=== PATIENT | male | born 1940 | race Caucasian/White ===

== ENCOUNTER 2018-06-18 11:39 | Inpatient (IN) | payer MEDICARE, OTHER ==
[~2018-06-18] VITALS: Ht 172.7 cm; Wt 83.0 kg
[2018-06-18] MEDS ORDERED: NORVASC 10MG10 MG PO (13:27)
[2018-06-18] MEDS ORDERED: ASPIRIN 81M81 MG/TA2 PO (13:28)
[2018-06-18] MEDS ORDERED: PLAVIX 75MG TAB75 MG PO (13:29)
[2018-06-18] MEDS ORDERED: PRINIVIL5 MG PO (13:30)
[2018-06-18] MEDS ORDERED: MIRALAX PA17 GM/Dose PO (13:31)
[2018-06-18] MEDS ORDERED: SENNA8.8 MG/5 M PO (13:32)
[2018-06-18] MEDS ORDERED: LIPITOR 80MG80 MG PO (13:33)
[2018-06-18] MEDS ORDERED: ZANTAC 150MG T150 MG PO (13:33)
[2018-06-18] MEDS ORDERED: RT ADVAIR 228 DISKUS IH (13:36)
[2018-06-18] MEDS ORDERED: KEPPRA250 MG PO (13:39)
[2018-06-18] MEDS ORDERED: KEPPRA 500MG500 MG PO (13:40)
[2018-06-18] MEDS ORDERED: RT SPIRIVA18 MCG IH (13:41)
[2018-06-18] MEDS ORDERED: NOVOLOG 100U100 U/M1 SQ (14:08)
[2018-06-18 14:30] VITALS: BP 125/48; PULSE 102; TEMP 97.7
[2018-06-18 16:37] LABS: ALBUMIN 2.9 gm/dL (3.5-5.0); BILIRUBIN,TOTAL 0.6 mg/dL (0.0-1.0); CALCIUM 8.6 mg/dL (8.4-10.2); CREATININE, serum 1.66 (0.66-1.25); MAGNESIUM 2.4 mg/dL (1.6-2.3); PHOSPHOROUS 3.2 mg/dL (2.5-4.5); POTASSIUM 4.3 mmol/L (3.4-5.0)
[2018-06-18 16:44] LABS: PRE ALBUMIN 17.6 mg/dL (17.6-36.0)
[2018-06-18 18:00] VITALS: BP 125/48; PULSE 102
--- NOTE | 2018-06-18 19:30 | NUR ---
Report received from Aicha VAZQUEZ. Patient rests soundly with eyes closed. Admission assessment done with .
--- NOTE | 2018-06-18 21:06 | NUR ---
Patient was a one person CGA with walking to the bathroom. It took some time to find syringe for peg tube feeding, but patient is now on continuous tube feedings. See orders in chart. Patient denies pain. Patient does have small seizures and staff has applied seizure pads to bed and patient takes Keppra. was with today and did answer questions for the 5 page report. Patient wears his own underwear and was continent this shift. Peg tube site cleaned and found serrato drainage to the area applied fresh drain gauze to the area. Patient tolerated well. will continue to monitor.
--- NOTE | 2018-06-18 21:30 | NUR ---
Patient up CGA with gaitbelt and voids and has medium soft brown bm. Wipes self. Inner buttucks with light redness and barrier cream applied. Patient rests self back in bed. Denies pain.
--- NOTE | 2018-06-18 22:30 | NUR ---
Peg tube residual minimal less than 5mls serrato tubefeeding. Flushed with 30mls prior to and after meds given.
--- NOTE | 2018-06-18 23:00 | NUR ---
Patient rests with eyes closed. Respirations with ease,
[2018-06-19] VITALS (12 sets, daily range): BP systolic 76–130; BP diastolic 40–49; PULSE 98–120; TEMP 97.7–98.3
--- NOTE | 2018-06-19 00:21 | NUR ---
Patient resting in bed until now. Up to the bathroom min 1 assist and has small incontinency of loose stool. Pullup applied. Rests back in bed. Patient used call light for toileting. Aphasic.
--- NOTE | 2018-06-19 02:00 | NUR ---
Patient rests with eyes closed. Respirations with ease.
--- NOTE | 2018-06-19 04:41 | NUR ---
Patient awake at this time and mouth swab moistened slightly and swabs mouth. Denies further needs.
--- NOTE | 2018-06-19 05:44 | NUR ---
PATIENT RESTS QUIETLY IN BED. RESPIRATIONS WITH EASE.
--- NOTE | 2018-06-19 08:02 | NUR ---
Report from TAYLOR Cota. FOILING MACHINE ADJUSTER assisted pt for toileting.
--- NOTE | 2018-06-19 09:12 | NUR ---
Handed pt moist swab for oral cares, warm washcloth, and upper dentures. Pt attempts to communicate, but difficulty understanding his slurred speech, he tries several words at a time. Informed pt of PEG cares, TF, and meds crushed via PEG, buttons intact with drain sponge in place with scant drainage. Denies pain, nausea, shortness of breath. Yellow gripper socks, yellow arm band, and bed alarm in place. Call light in reach. Pt donned glasses.
--- NOTE | 2018-06-19 11:03 | NUR ---
Paused TF while pt works with OT. Denies pain.
--- NOTE | 2018-06-19 11:25 | NUR ---
OT reports pt short of air after toileting with loose stool. Pt was sitting on shower bench in BR, see vitals. After resting, SpO2 came up. OT took BP, low, returned pt to bed for sponge bath. Will continue to monitor.
[2018-06-19 12:44] LABS: MEAN CELL VOLUME 94 fl (80.0-100.0); MEAN CORPUSCULAR HGB CONC 33 g/dl (33.0-37.0); MEAN PLATELET VOLUME 10.3 fl (7.4-10.4); PLATELET COUNT 298 K/mm3 (130-400); RED BLOOD COUNT 2.91 M/mm3 (4.20-5.60); REDCELL DISTRIBUTION WIDTH-CV 13.8 % (11.5-14.5)
[2018-06-19 12:45] LABS: HEMATOCRIT 27.4 % (42.0-52.0); MEAN CORPUSCULAR HEMOGLOBIN 31 pg (27.0-31.0)
[2018-06-19 12:55] LABS: CALCIUM 9.2 mg/dL (8.4-10.2); CREATININE, serum 2.46 (0.66-1.25); MAGNESIUM 2.7 mg/dL (1.6-2.3); POTASSIUM 3.8 mmol/L (3.4-5.0)
[2018-06-19 13:09] LABS: BAND 3 % (0-10); EOSINOPHIL 1 % (0-4); LYMPHOCYTE 16 % (20.0-51.0); METAMYELOCYTE 1 % (0-0); MYELOCYTE 1 % (0-0); NEUTROPHILS 73 % (42.0-75.2)
--- NOTE | 2018-06-19 13:15 | NUR ---
Dr. Christopher made aware of pt's loose dark green/black stools, "coffee ground" residual from PEG, and episode of hypotension with OT.
--- NOTE | 2018-06-19 13:16 | NUR ---
Contacted Dr. Christopher for critical WBC. See new orders. Dolores visiting, updated her and pt about orders. Disconnected TF for therapy. See vitals.
--- NOTE | 2018-06-19 15:07 | NUR ---
TF resumed, pt declined offer to toilet. visiting. Copies of DPOA to chart. Enc oral swab use, assists with ice chips.
--- NOTE | 2018-06-19 15:24 | NUR ---
REBECCA mcadams met with patient and patient's (Cheryl) to complete intake. Patient lives with his in [place]. Patient's PCP is Dr. Sanders at [facility] and he also receives his medications on [facility]. Patient has a cane and walker available to him at home and was independent with ADLs prior to stroke and hospitalization. Patient's DPOA-HC is in his chart and he has designated his . REBECCA mcadams informed patient and patient's about the weekly team conferences and notes following the meeting. REBECCA to continue to follow.
--- NOTE | 2018-06-19 20:00 | NUR ---
Patients accu check 426 and message left with . Patient given 14 units novolog insulin along with scheduled levimier. HS meds all reviewed and given. Felicitas VAZQUEZ started IV bolus and IV ABT. Patient rests quietly in bed. Respirations slightly labored but denies shortness of breath or pain. Alert to self, in hospital month, unable to state year and states it's morning time. Reoriented. Understands and follows directions without problems.
--- NOTE | 2018-06-19 20:38 | NUR ---
Stool positive for occult blood, see new orders. Started IV and fluids and abx. Pt unable to void prior to shift change, bladder scanned with results 100-300's. Report to TAYLOR Cota. Pt in bed with alarm on, call lt in reach, fresh ice chips given.
--- NOTE | 2018-06-19 22:00 | NUR ---
Accu check now 288. Adams cath 16 greek procedure reviewed with patient due to urine retention and IVF administration. Althea care done and adams catheter inserted via sterile procedure without problem. Immediate return of clear yellow urine. Patient calm during procedure and tolerated well. Total return of 500mls urine initially. Cath UA sent to lab.
[2018-06-19 22:44] LABS: PH 5 (5-8); SQUAMOUS EPITHELIAL None Seen /hpf; URINE APPEARANCE Clear; URINE BACTERIA None Seen /hpf; URINE BILIRUBIN Negative (NEGATIVE); URINE BLOOD Negative (NEGATIVE); URINE COLOR Yellow; URINE GLUCOSE 1+ (NEGATIVE); URINE KETONE Negative (NEGATIVE); URINE LEUKOCYTE ESTERASE Negative (NEGATIVE); URINE NITRATE Negative (NEGATIVE); URINE PROTEIN(semi-quant) Negative (NEGATIVE); URINE RBC 0-2 /hpf; URINE UROBILINOGEN Negative (NEGATIVE)
[2018-06-19 23:25] LABS: COLLECTION METHOD CATHETER
--- NOTE | 2018-06-19 23:30 | NUR ---
New orders were received per Dr. Christopher to do accu checks and SSI q 4 hours at this time. Accu check 240 and 6 units novolog reviewed and given. Patient initially resting with eyes closed.
[2018-06-20] VITALS (8 sets, daily range): BP systolic 101–158; BP diastolic 28–51; PULSE 97–122; TEMP 98.8–99.4
--- NOTE | 2018-06-20 05:06 | NUR ---
Patient awakened for SSI 8 units SQ. Denies pain or needs. Ice chips given.
[2018-06-20 07:25] LABS: BASO % 0.2 % (0.0-2.0); EOS # 0.2 (0.0-0.7); EOS % 1.3 % (0-4.0); GRAN # 11.2 (1.4-6.5); GRAN % 73.9 % (42.2-75.2); HEMATOCRIT 23.2 % (42.0-52.0); HEMOGLOBIN 7.3 g/dl (13.5-18.0); LYMPH # 2.2 (1.2-3.4); LYMPH % 14.2 % (20.0-51.0); MEAN CELL VOLUME 97 fl (80.0-100.0); MEAN CORPUSCULAR HEMOGLOBIN 31 pg (27.0-31.0); MEAN CORPUSCULAR HGB CONC 32 g/dl (33.0-37.0); MEAN PLATELET VOLUME 10.5 fl (7.4-10.4); MONO # 1.4 (0.1-0.6); MONO % 9.5 % (1.7-9.3); PLATELET COUNT 233 K/mm3 (130-400); RED BLOOD COUNT 2.39 M/mm3 (4.20-5.60); REDCELL DISTRIBUTION WIDTH-CV 14.3 % (11.5-14.5)
[2018-06-20 07:28] LABS: CALCIUM 8.5 mg/dL (8.4-10.2); CREATININE, serum 2.28 (0.66-1.25); MAGNESIUM 2.5 mg/dL (1.6-2.3); POTASSIUM 3.9 mmol/L (3.4-5.0)
--- NOTE | 2018-06-20 08:08 | NUR ---
Report from TAYLOR Cota. TF had run out, requested more from kitchen. Pt to start PT soon, has SCDs off, yellow gripper socks on. IVF paused for therapies.
--- NOTE | 2018-06-20 09:32 | NUR ---
Per pt's request, called to update of pt's POC and expected transfer to medical unit. She states she will try to arrive around 1230
--- NOTE | 2018-06-20 09:43 | NUR ---
Resumed IVF and TF
--- NOTE | 2018-06-20 09:43 | NUR ---
Changed drain sponge to PEG of scant bloody drainage. Three buttons intact.
--- NOTE | 2018-06-20 10:23 | NUR ---
Pt pushed call light, unable to understand his words, provided oral swab. He points to "family" image on communication paper. See vitals. Pt eventually able to communicate he wanted ice chips.
--- NOTE | 2018-06-20 11:26 | NUR ---
Initial visit; Substitute Bus Driver introduced herself to patient, letting him know of the availability of Spiritual Care. Patient declined prayer at this time.
--- NOTE | 2018-06-20 14:34 | NUR ---
Pt's questions pt's keppra dose, pt acknowledges that he had stopped taking the extra 250 mg at night, so he was just on 500 mg BID
--- NOTE | 2018-06-20 15:00 | NUR ---
Tube feed stopped at 1400. Flushed with 124 ml water.
--- NOTE | 2018-06-20 15:13 | NUR ---
REBECCA student presented and explained IPR team conference notes to patient and patient's . Patient is to transfer to medical floor later today. SW to continue to follow.
--- NOTE | 2018-06-20 16:33 | NUR ---
Cleaned PEG tube with water and toothbrush after meds administered.
--- NOTE | 2018-06-20 20:57 | NUR ---
Discharged from [facility] in order to admit to surgical at 1700 d/t GI bleed. See new acct.
== END 2018-06-20 17:39 | DRG 57 ==
LOC: SURG 06-20 16:35
PROVIDERS: ADMIT Internal Medicine
DX: I69.351 Hemiplegia and hemiparesis following cerebral infarction affecting right dominant side (principal); N17.9 Acute kidney failure, unspecified; K92.1 Melena; I69.320 Aphasia following cerebral infarction; I69.322 Dysarthria following cerebral infarction; I69.392 Facial weakness following cerebral infarction; N40.0 Benign prostatic hyperplasia without lower urinary tract symptoms; I12.9 Hypertensive chronic kidney disease with stage 1 through stage 4 chronic kidney disease, or unspecified chronic kidney disease; N18.9 Chronic kidney disease, unspecified; E11.22 Type 2 diabetes mellitus with diabetic chronic kidney disease; J44.9 Chronic obstructive pulmonary disease, unspecified; Z87.891 Personal history of nicotine dependence; I95.9 Hypotension, unspecified; R13.10 Dysphagia, unspecified; E78.5 Hyperlipidemia, unspecified; G40.909 Epilepsy, unspecified, not intractable, without status epilepticus
CPT/HCPCS: 99223-AI; 99239; A4216; C9113; J0696; J1815; J7030

== ENCOUNTER 2018-06-20 16:35 | Inpatient (IN) | payer MEDICARE, OTHER ==
[~2018-06-20] VITALS: Ht 172.7 cm; Wt 86.9 kg
[~2018-06-20 16:35] MED LIST: ASPIRIN 81M81 MG/TA2 PO; KEPPRA 500MG500 MG PO; KEPPRA250 MG PO; LIPITOR 80MG80 MG PO; MIRALAX PA17 GM/Dose PO; NORVASC 10MG10 MG PO; NOVOLOG 100U100 U/M1 SQ; PLAVIX 75MG TAB75 MG PO; PRINIVIL5 MG PO; RT ADVAIR 228 DISKUS IH; RT SPIRIVA18 MCG IH; SENNA8.8 MG/5 M PO; ZANTAC 150MG T150 MG PO
[2018-06-20 17:58] VITALS: BP 124/44; PULSE 128; TEMP 97.5
[2018-06-20 19:22] LABS: HEMATOCRIT 20.5 % (42.0-52.0); HEMOGLOBIN 6.6 g/dl (13.5-18.0)
[2018-06-20 19:30] VITALS: BP 123/40; PULSE 121; TEMP 97.8
--- NOTE | 2018-06-20 19:30 | NUR ---
Message left with Dr. Christopher patients hgb 6.6 Hct 20.5, patients repirations are Kussmaul 28-30 breaths per minute,labored. Patient does report some shortness of breath. sao2 94-97% room air. BP 127/42. Left message that patients heart rate 119-125. Script Girl Blanca notified of above. See assessment. Patient dozes off and on. Awakens readily to voice and alert. At 2100 new orders received by Dr. Christopher for type and screen and administer 1 Unit PRBCs. Accu check [address] Christopher notified and orders received to hold levemier, lipitor and miralax tonight. Patient informed of order for 1 unit PRBC's and signs and symptoms of blood transfusion reaction ie: shortness of breath, fever, chills, itching, rash, chest pain, bleeding, dizziness, nausea, back or flank pain and hives. Patients Dolores notified of new order for 1 unit PRBCs and purpose and Dolores gives verbal consent for administration of PRBCs to patient and verified by 2 RN's. See consent form.
[2018-06-20 19:42] VITALS: BP 124/44; PULSE 128; TEMP 97.5
--- NOTE | 2018-06-20 20:12 | NUR ---
Pt discharged from IPR and admitted to [facility] via bed, slide board transfer, IVF and rocephin given on IPR prior to changing rooms. Dolores at bedside, updated on POC. Pt's resps are 28 and even, snores when sleeping. PEG feeds stopped at 1400. SCDs to BLE, yellow gripper socks in place, call light in reach, alarm on bed. Report to TAYLOR Cota.
[2018-06-20 23:00] VITALS: BP 124/41; PULSE 117; TEMP 99.2
[2018-06-20 23:16] VITALS: BP 116/67; PULSE 117; TEMP 99.2
[2018-06-20 23:40] VITALS: BP 126/43; PULSE 119; TEMP 98
--- NOTE | 2018-06-20 23:40 | NUR ---
PRBC's infusion rate increased from 60 to 120ml/hr. Patient restless arm movements at times and takes off 02 monitor. Denies pain.
[2018-06-21] VITALS (18 sets, daily range): BP systolic 104–140; BP diastolic 40–95; PULSE 81–118; TEMP 97.4–98.5
--- NOTE | 2018-06-21 00:20 | NUR ---
Patient rests with eyes closed. Kussamaul respirations 32 breaths per minute. Afebrile. Blanca VAZQUEZdistribution center supervisor into see patient.
--- NOTE | 2018-06-21 02:35 | NUR ---
1 unit PRBC transfusion complete without signs or symptoms of transfusion reaction. Patients respirations less labored at times 28 breaths per minute. Heart rate decreased to 109-112.
--- NOTE | 2018-06-21 03:00 | NUR ---
Patient incontinent of small loose dk brown stool in pullup and changed. Assists staff with turning side to side. Denies pain. Barrier cream applied to lightly reddened inner buttucks. No skin tear/or opening noted. Patient changed from clothing into gown. HR 106-109. Respirations less labored 28.
--- NOTE | 2018-06-21 04:04 | NUR ---
Patient rests with eyes closed. Repositions self in bed.
--- NOTE | 2018-06-21 05:30 | NUR ---
Patient rests quietly in bed. Respirations less labored at 28 breaths per minute. HR in 90's. Lab was in and sd blood. Hopper with good urine output clear yellow urine.
[2018-06-21 06:59] LABS: MEAN CELL VOLUME 96 fl (80.0-100.0); MEAN CORPUSCULAR HGB CONC 32 g/dl (33.0-37.0); MEAN PLATELET VOLUME 10.6 fl (7.4-10.4); PLATELET COUNT 230 K/mm3 (130-400); RED BLOOD COUNT 2.71 M/mm3 (4.20-5.60); REDCELL DISTRIBUTION WIDTH-CV 14.7 % (11.5-14.5)
[2018-06-21 07:04] LABS: CALCIUM 8.5 mg/dL (8.4-10.2); CREATININE, serum 2.26 (0.66-1.25); MAGNESIUM 2.4 mg/dL (1.6-2.3); POTASSIUM 3.6 mmol/L (3.4-5.0)
[2018-06-21 07:08] LABS: HEMATOCRIT 25.9 % (42.0-52.0); HEMOGLOBIN 8.4 g/dl (13.5-18.0); MEAN CORPUSCULAR HEMOGLOBIN 31 pg (27.0-31.0)
[2018-06-21 07:20] LABS: INR 1.1 (0.8-3.0); PROTHROMBIN TIME 12.1 SECONDS (9.7-12.8)
[2018-06-21 07:32] LABS: BAND 1 % (0-10); BASOPHIL 1 % (0-2); LYMPHOCYTE 13 % (20.0-51.0); NEUTROPHILS 77 % (42.0-75.2); PLATELET ESTIMATE NORMAL (NORMAL)
[2018-06-21 07:33] LABS: DOHLE BODIES PRESENT
--- NOTE | 2018-06-21 07:35 | NUR ---
CRITICAL WBC RESULT OF 23.1 CALLED TO LUX SIMMONS. NO ORDERS GIVEN AT THIS TIME.
--- NOTE | 2018-06-21 07:46 | NUR ---
CALLED AND NOTIFIED OF GI BLEED CONSULT. ORDERS GIVEN TO SCHEDULE EGD AT 1330 TODAY WITH ANESTHESIA. KEEP PATIENT NPO.
--- NOTE | 2018-06-21 07:56 | NUR ---
EGD SCHEDULED WITH ENDOSCOPY AT 1330 TODAY. ANESTHESIA NOTIFIED OF CONSULT FOR PROCEDURE.
--- NOTE | 2018-06-21 08:00 | NUR ---
PATIENT IS APHASIC. WHEN PATIENT'S FIRST AND LAST NAME AND BIRTHDATE ARE READ TO THE PATIENT, HE NODS IN AGREEANCE. PATIENT STATES THE MONTH IS JUNE, SPEECH GARBLED. WHEN PATIENT IS ASKED IF HE KNOWS WHERE HE IS, HE SHAKES HIS HEAD NO. PATIENT RE-ORIENTED TO PLACE. SEE PATIENT MORNING ASSESSMENT. PATIENT IS DROWSY, BUT AROUSES EASILY TO NAME. TACHYPNEA AND TACHYCARDIA NOTED, OTHERWISE VSS. LUNGS CLEAR UPON AUSCULTATION. AUDITORY EXPIRATORY WHEEZES NOTED. PATIENT DENIES SOB. PEG TUBE TO ABDOMEN AND CLAMPED. VILLALBA CATHETER TO DEPENDENT DRAINAGE WITH MODERATE AMOUNTS OF CLEAR YELLOW URINE PRESENT. IV FLUIDS INFUSING TO LEFT FOREARM VIA IV PUMP. CALL LIGHT WITHIN REACH. BED ALARM ON. SEIZURE PADS IN PLACE. PATIENT DENIES PAIN THIS MORNING. NO NEEDS AT THIS TIME.
--- NOTE | 2018-06-21 08:25 | NUR ---
DOUBLE NURSE PHONE CONSENT OBTAINED BY THIS NURSE AND TAYLOR GOETZ FOR EGD WITH POSSIBLE BIOPSIES WITH THIS AFTERNOON FROM PATIENT'S [facility]. CONSENT FORM ON PATIENT CHART.
[2018-06-21 11:36] LABS: COLLECTION METHOD CATHETER
[2018-06-21 12:03] LABS: MUCOUS Present /lpf; PH 5 (5-8); SQUAMOUS EPITHELIAL None Seen /hpf; URINE APPEARANCE Hazy; URINE BACTERIA None Seen /hpf; URINE BILIRUBIN Negative (NEGATIVE); URINE BLOOD 2+ (NEGATIVE); URINE COLOR Yellow; URINE GLUCOSE Negative (NEGATIVE); URINE KETONE Negative (NEGATIVE); URINE LEUKOCYTE ESTERASE Negative (NEGATIVE); URINE NITRATE Negative (NEGATIVE); URINE PROTEIN(semi-quant) Negative (NEGATIVE); URINE UROBILINOGEN Negative (NEGATIVE)
--- NOTE | 2018-06-21 12:20 | NUR ---
First visit from the preschool assistant director. No needs right now.
--- NOTE | 2018-06-21 13:08 | NUR ---
PATIENT TAKEN TO [facility] VIA BED FOR EGD. WILL WAIT FOR PATIENT ARRIVAL BACK TO ROOM 344.
--- NOTE | 2018-06-21 13:54 | NUR ---
PT IN BED WITH EYES CLOSED. AWAKENS EASILY. PT SHAKES HEAD YES OR NO WHEN QUESTIONS ARE ASKED. LIMITED VERBAL RESPONSE. RESP RATE EVEN AND UNLABORED. SKIN WARM AND DRY. PT SHAKES HEAD NO WHEN ASKED IF HE IS HAVING PAIN. VILLALBA CATHETER DRAINING CLEAR PALE YELLOW URINE. PRIMARY NURSE MIGUE.
--- NOTE | 2018-06-21 14:35 | NUR ---
PATIENT ARRIVED BACK TO ROOM 344 VIA BED FROM EGD AND CT SCAN. PATIENT IS DROWSY BUT AROUSES EASILY TO NAME. POST-OP VITALS STABLE. WILL CONTINUE TO MONITOR.
[2018-06-21 16:46] LABS: CALCIUM 8.2 mg/dL (8.4-10.2); CREATININE, serum 2.07 (0.66-1.25); POTASSIUM 3.6 mmol/L (3.4-5.0)
--- NOTE | 2018-06-21 17:20 | NUR ---
POST-OP VITALS COMPLETE. PATIENT TOLERATING ICE CHIPS WITHOUT ANY N/V. WILL CONTINUE TO MONITOR.
[2018-06-21 18:17] LABS: HEMATOCRIT 23.4 % (42.0-52.0); HEMOGLOBIN 7.7 g/dl (13.5-18.0)
--- NOTE | 2018-06-21 19:02 | NUR ---
Patient had no complaints. present during the day. Call light within reach. Reported off to primary nurse Katina.
--- NOTE | 2018-06-21 19:09 | NUR ---
REPORT GIVEN TO TAYLOR TIMMONS.
--- NOTE | 2018-06-21 23:08 | NUR ---
Patient resting in bed during assessment. Noted to be hard of hearing and aphasic. Staff has difficulty in understanding needs. Some frustration from patient noted. PICC to YANA noted. PEG tube noted to left upper quadrant. Flushes easily. Medications administered through PEG. Patient frequently requests ice chips for dry mouth. Noted to have urinary catheter draining yellow urine. Denies pain. Patient resting in bed with eyes closed at this time. Noted to have some tachypnea, but doesn't appear to be in distress. Oxygen saturation within normal limits. Will monitor this closely.
[2018-06-22 01:11] VITALS: BP 150/47; PULSE 100; TEMP 97.3
--- NOTE | 2018-06-22 03:39 | NUR ---
Patient requests and received ice chips. Denies further needs. Noted to sneeze and cough a couple times throughout the shift. Noted to sleep on and off throughout the night. Shakes head no when asked if he has pain.
[2018-06-22 06:55] LABS: BASO % 0.2 % (0.0-2.0); EOS # 0.3 (0.0-0.7); EOS % 1.3 % (0-4.0); GRAN # 16.9 (1.4-6.5); GRAN % 81.8 % (42.2-75.2); INR 1.2 (0.8-3.0); LYMPH % 9.8 % (20.0-51.0); MEAN CELL VOLUME 96 fl (80.0-100.0); MEAN CORPUSCULAR HGB CONC 32 g/dl (33.0-37.0); MEAN PLATELET VOLUME 10.5 fl (7.4-10.4); MONO # 1.2 (0.1-0.6); PLATELET COUNT 211 K/mm3 (130-400); PROTHROMBIN TIME 13.5 SECONDS (9.7-12.8); REDCELL DISTRIBUTION WIDTH-CV 15.3 % (11.5-14.5)
[2018-06-22 07:02] LABS: HEMOGLOBIN 7.4 g/dl (13.5-18.0); MEAN CORPUSCULAR HEMOGLOBIN 31 pg (27.0-31.0)
[2018-06-22 07:03] LABS: ALBUMIN 2.5 gm/dL (3.5-5.0); BILIRUBIN,TOTAL 0.8 mg/dL (0.0-1.0); CREATININE, serum 1.97 (0.66-1.25); MAGNESIUM 2.4 mg/dL (1.6-2.3); POTASSIUM 3.4 mmol/L (3.4-5.0); TOTAL PROTEIN 5.4 gm/dL (6.4-8.2)
--- NOTE | 2018-06-22 07:15 | NUR ---
CRITICAL WBC OF 20.6 CALLED TO LUX SIMMONS. NO ORDERS GIVEN AT THIS TIME.
[2018-06-22 08:00] VITALS: BP 153/53; PULSE 98; TEMP 97.6
--- NOTE | 2018-06-22 11:47 | NUR ---
SW student followed up with patient and patient's (Cheryl). Patient transferred over from [facility]. Patient lives with his in [place]. PCP is Dr. Sanders at [facility] and he also receives his medications at [facility]. Patient has a cane and walker available at home and was independent with ADLs prior to the stroke and hospitalization. DPOA-HC is in EMR and it designates his . The plan is for patient to return to [facility] once medically stable. SW to continue to follow.
[2018-06-22 12:09] VITALS: BP 154/43; PULSE 96; TEMP 98.4
[2018-06-22 15:05] VITALS: BP 144/49; PULSE 95; TEMP 98.8
[2018-06-22 17:53] LABS: CALCIUM 7.8 mg/dL (8.4-10.2); CREATININE, serum 1.84 (0.66-1.25); POTASSIUM 3.2 mmol/L (3.4-5.0)
--- NOTE | 2018-06-22 17:56 | NUR ---
Patient resting in bed. visting at bedside. Remains NPO. No complaints of pain or discomfort at this time. Reported off to TAYLOR Ambriz.
--- NOTE | 2018-06-22 18:28 | NUR ---
END OF SHIFT NOTE. PATIENT IS A&OX4. SEE MORNING ASSESSMENT. PATIENT UTILIZING COMMUNICATION BOARD AND SHAKES HEAD TO YES AND NO QUESTIONS. PATIENT'S PRESENT AT BEDSIDE THROUGHOUT SHIFT. PATIENT TOLERATING ICE CHIPS AND IS OTHERWISE NPO. PICC TO LUE. RIGHT-SIDED WEAKNESS NOTED. PATIENT DENIES ANY PAIN THROUGHOUT SHIFT. CALL LIGHT WITHIN REACH. PATIENT DENIES ANY NEEDS AT THIS TIME.
--- NOTE | 2018-06-22 19:15 | NUR ---
REPORT GIVEN TO TAYLOR TIMMONS.
--- NOTE | 2018-06-22 20:40 | NUR ---
Patient resting in bed. Requests more ice chips. Denies pain. Nods to yes and no questions. Fluids running to PICC to YANA. Denies further needs at this time.
[2018-06-22 21:15] VITALS: BP 129/61; PULSE 99; TEMP 97.2
[2018-06-22 23:49] VITALS: BP 124/48; PULSE 95; TEMP 97.8
[2018-06-23] VITALS (9 sets, daily range): BP systolic 117–133; BP diastolic 41–57; PULSE 74–88; TEMP 97.6–98.9
[2018-06-23 06:01] LABS: BASO % 0.1 % (0.0-2.0); EOS # 0.4 (0.0-0.7); EOS % 2.3 % (0-4.0); GRAN # 15.2 (1.4-6.5); GRAN % 82.6 % (42.2-75.2); LYMPH # 1.8 (1.2-3.4); LYMPH % 9.6 % (20.0-51.0); MEAN CELL VOLUME 95 fl (80.0-100.0); MEAN CORPUSCULAR HGB CONC 32 g/dl (33.0-37.0); MONO # 0.9 (0.1-0.6); MONO % 4.9 % (1.7-9.3); PLATELET COUNT 201 K/mm3 (130-400); RED BLOOD COUNT 2.24 M/mm3 (4.20-5.60)
[2018-06-23 06:07] LABS: HEMATOCRIT 21.3 % (42.0-52.0); HEMOGLOBIN 6.9 g/dl (13.5-18.0); MEAN CORPUSCULAR HEMOGLOBIN 31 pg (27.0-31.0)
[2018-06-23 06:13] LABS: CALCIUM 7.6 mg/dL (8.4-10.2); CREATININE, serum 1.78 (0.66-1.25)
--- NOTE | 2018-06-23 06:19 | NUR ---
Critical Hemoglobin of 6.[address] nurse[address] Harper notified and ordered 1 unit PRBC to be transfused. MARINE.
--- NOTE | 2018-06-23 08:00 | NUR ---
Patient in bed resting, aphasic. Patient responds appropriately to yes and no questions. Shift assessmetn complete. Drowsy but arouses eaily to name. Tachypnea noted. VSS, Lungs clear on auscultation. Peg tube flushes without complications, residual of 0. Hopper to dependent drainage. PICC line to LUE with fluids infusing via pump. Denies further needs at this time.
--- NOTE | 2018-06-23 13:00 | NUR ---
Per Dr. Harper, restart tube feeding. Attempted to call dietary, no answer
--- NOTE | 2018-06-23 14:05 | NUR ---
Kitchen will continue to attempt to reach dietary to restart Tube feedings
--- NOTE | 2018-06-23 16:55 | NUR ---
Initiated Tube feeding
[2018-06-23 18:31] LABS: HEMATOCRIT 24.2 % (42.0-52.0); HEMOGLOBIN 8.1 g/dl (13.5-18.0)
--- NOTE | 2018-06-23 18:32 | NUR ---
Patient has rested intermittently through the day. Denies pain at this time. IV fluids and antibiotics infusing via pump per orders. Tube feeding infusing via peg tube. Denies further needs at this time. Will report off to shift supervisor film processing.
--- NOTE | 2018-06-23 23:16 | NUR ---
Patient resting upon entering room. Tube feeding being infused through PEG. Denies pain. PICC to YANA infusing fluids. Requests and receives ice chips. Garbled speech noted. Utilizes communication board and able to nod for yes/no questions. Hopper catheter present draining clear yellow urine.
[2018-06-24 01:09] VITALS: BP 132/50; PULSE 94; TEMP 98.5
[2018-06-24 04:00] VITALS: BP 123/48; PULSE 88; TEMP 98
--- NOTE | 2018-06-24 05:58 | NUR ---
Patient has rested well throughout the night. Continues to freqently ask for ice chips. Tube feeding via PEG continues. Tolerating well. Denies further needs.
--- NOTE | 2018-06-24 06:53 | NUR ---
Report given to TAYLOR Turcios.
[2018-06-24 07:47] LABS: BASO % 0.2 % (0.0-2.0); EOS # 0.3 (0.0-0.7); EOS % 2.1 % (0-4.0); GRAN # 10.7 (1.4-6.5); GRAN % 83.4 % (42.2-75.2); LYMPH # 1.2 (1.2-3.4); LYMPH % 9.5 % (20.0-51.0); MEAN CELL VOLUME 94 fl (80.0-100.0); MEAN CORPUSCULAR HGB CONC 33 g/dl (33.0-37.0); MEAN PLATELET VOLUME 10.4 fl (7.4-10.4); MONO # 0.6 (0.1-0.6); MONO % 4.5 % (1.7-9.3); PLATELET COUNT 209 K/mm3 (130-400); RED BLOOD COUNT 2.57 M/mm3 (4.20-5.60)
[2018-06-24 07:59] LABS: HEMATOCRIT 24.2 % (42.0-52.0); HEMOGLOBIN 7.9 g/dl (13.5-18.0); MEAN CORPUSCULAR HEMOGLOBIN 31 pg (27.0-31.0)
[2018-06-24 08:03] LABS: CALCIUM 7.3 mg/dL (8.4-10.2); CREATININE, serum 1.67 (0.66-1.25); POTASSIUM 3.2 mmol/L (3.4-5.0)
[2018-06-24 09:06] VITALS: BP 112/66; PULSE 82; TEMP 97.6
--- NOTE | 2018-06-24 09:30 | NUR ---
Patient alert, non communicating. See assessment. Seizure pads in place. Abdomen with PEG tube in place infusing tube feeding. Abdomen soft, non tender, non distended. Bowel sounds active x4 quads. +Bowel movement/flatus. PICC in place to LUE, flushes easily with blood return noted. No visual s/s pain or discomfort at this time.
[2018-06-24 12:25] VITALS: BP 120/46; PULSE 81; TEMP 97.3
[2018-06-24 15:40] VITALS: BP 138/46; PULSE 89; TEMP 97.1
[2018-06-24 20:29] VITALS: BP 148/42; PULSE 92; TEMP 98.4
--- NOTE | 2018-06-24 22:45 | NUR ---
PT IN BED. DENIED PAIN. TUBE FEEDING IN PROGRESS.
[2018-06-25 01:03] VITALS: BP 136/46; PULSE 93; TEMP 98.3
[2018-06-25 04:00] VITALS: BP 156/45; PULSE 91; TEMP 98.9
[2018-06-25 06:55] LABS: BASO % 0.2 % (0.0-2.0); EOS # 0.2 (0.0-0.7); EOS % 1.8 % (0-4.0); GRAN # 10.4 (1.4-6.5); GRAN % 82.7 % (42.2-75.2); LYMPH # 1.2 (1.2-3.4); LYMPH % 9.3 % (20.0-51.0); MEAN CELL VOLUME 95 fl (80.0-100.0); MEAN CORPUSCULAR HGB CONC 33 g/dl (33.0-37.0); MEAN PLATELET VOLUME 10.7 fl (7.4-10.4); MONO # 0.7 (0.1-0.6); MONO % 5.6 % (1.7-9.3); PLATELET COUNT 216 K/mm3 (130-400); RED BLOOD COUNT 2.59 M/mm3 (4.20-5.60); REDCELL DISTRIBUTION WIDTH-CV 14.6 % (11.5-14.5)
[2018-06-25 07:02] LABS: HEMATOCRIT 24.5 % (42.0-52.0); MEAN CORPUSCULAR HEMOGLOBIN 31 pg (27.0-31.0)
[2018-06-25 07:03] LABS: ALBUMIN 2.4 gm/dL (3.5-5.0); BILIRUBIN,TOTAL 0.4 mg/dL (0.0-1.0); CALCIUM 7.6 mg/dL (8.4-10.2); CREATININE, serum 1.64 (0.66-1.25); MAGNESIUM 2.4 mg/dL (1.6-2.3); PHOSPHOROUS 2.9 mg/dL (2.5-4.5); POTASSIUM 3.3 mmol/L (3.4-5.0); TOTAL PROTEIN 5.4 gm/dL (6.4-8.2)
[2018-06-25 07:09] LABS: PRE ALBUMIN 8.3 mg/dL (17.6-36.0)
--- NOTE | 2018-06-25 08:00 | NUR ---
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 PATIENT IS ABLE TO COMMUNICATE USING FLIP CARDS, BODY LANGUAGE AND SOME VERBAL. VSS. DENIES PAIN AT THIS TIME. PEG TUBE WITH CONTINUOUS FEEDINGS INFUSING. LEFT PICC LINE. SEIZURE PRECAUTIONS INPLACE FOR A HISTORY. VILLALBA TO DEPENDENT DRAINAGE WITH SMALL AMOUNTS OF YELLOW HAZY URINE NOTED. HEAD TO TOE ASSESSMENT COMPLETE. AM BS WAS 229, SSI GIVEN. AM MEDS GIVEN. NO OTHER NEEDS. CALL LIGHT IN REACH.
[2018-06-25 08:30] VITALS: BP 154/59; PULSE 92; TEMP 97.9
[2018-06-25] MEDS ORDERED: NOVLOG SQ ×2 (13:54→13:55)
[2018-06-25] MEDS ORDERED: LEVEMIR100 U/ML SQ (13:54)
[2018-06-25] MEDS ORDERED: PROTONIX40 MG/Pack PO (13:54)
[2018-06-25] MEDS ORDERED: BIOTENE MOIST44.3 ML PO (13:55)
[2018-06-25] MEDS ORDERED: PLAVIX 75MG TAB75 MG PO (13:56)
[2018-06-25] MEDS ORDERED: FERROUSAL325 MG PO (14:20)
[2018-06-25 15:38] VITALS: BP 154/59; PULSE 92; TEMP 97.9
--- NOTE | 2018-06-25 17:00 | NUR ---
PATIENT DISCHARGED TO [facility] VIA BEDSIDE CHAIR. TELE DC'D. PATIENT DISCHARGED WITH PICC PER HOSPITALIST. REPORT GIVEN TO TAYLOR ZEE.
== END 2018-06-25 17:00 | DRG 378 ==
LOC: SURG 16:35
PROVIDERS: Internal Medicine; Internal Medicine Gastroenterology; Nurse Practitioner Family; Physician Assistant; ADMIT Internal Medicine
PROC: 0W3P8ZZ Control Bleeding in Gastrointestinal Tract, Via Natural or Artificial Opening Endoscopic (ICD-10-PCS; 2018-06-21)
PROC: 0DB68ZX Excision of Stomach, Via Natural or Artificial Opening Endoscopic, Diagnostic (ICD-10-PCS; principal; 2018-06-21 13:30)
DX: K26.4 Chronic or unspecified duodenal ulcer with hemorrhage (principal); N17.9 Acute kidney failure, unspecified; I69.351 Hemiplegia and hemiparesis following cerebral infarction affecting right dominant side; D62 Acute posthemorrhagic anemia; E87.0 Hyperosmolality and hypernatremia; K44.9 Diaphragmatic hernia without obstruction or gangrene; N18.9 Chronic kidney disease, unspecified; E87.6 Hypokalemia; I12.9 Hypertensive chronic kidney disease with stage 1 through stage 4 chronic kidney disease, or unspecified chronic kidney disease; E11.22 Type 2 diabetes mellitus with diabetic chronic kidney disease; I69.391 Dysphagia following cerebral infarction; I69.320 Aphasia following cerebral infarction; I69.322 Dysarthria following cerebral infarction; R13.10 Dysphagia, unspecified; I73.9 Peripheral vascular disease, unspecified; E78.5 Hyperlipidemia, unspecified; G40.909 Epilepsy, unspecified, not intractable, without status epilepticus; K21.9 Gastro-esophageal reflux disease without esophagitis
CPT/HCPCS: 99222-AI; 99232-AI; 99233-AI; 99239; A4216; C1751; C9113; J0696; J1815; J2543; J2704; J3480; J7030; J7070; P9016

== ENCOUNTER 2018-06-25 11:17 | Inpatient (IN) | payer MEDICARE, OTHER ==
[~2018-06-25] VITALS: Ht 175.3 cm; Wt 81.9 kg
[2018-06-25] MEDS ORDERED: PROTONIX40 MG/Pack PO (13:54)
[2018-06-25] MEDS ORDERED: LEVEMIR100 U/ML SQ (13:54)
[2018-06-25] MEDS ORDERED: NOVLOG SQ ×2 (13:54→13:55)
[2018-06-25] MEDS ORDERED: BIOTENE MOIST44.3 ML PO (13:55)
[2018-06-25] MEDS ORDERED: PLAVIX 75MG TAB75 MG PO (13:56)
[2018-06-25] MEDS ORDERED: FERROUSAL325 MG PO (14:20)
--- NOTE | 2018-06-25 17:50 | NUR ---
Patient arrived at 1500 today from [facility]. Patient will begin therapies tomorrow. Tele was DC'd prior to coming over to [facility]. Patient had a large runny black stool this evening. He had two prior to coming over to [facility]. Patient has a halter monitor that he got from - need to find out when wants this halter monitor to be started. placed a call to awaiting a return call. Halter Monitor kit is in patient room and phone and device are plugged in so they can be charged. Reported to night nurse to communicate the above to day nurse tomorrow. Patient is NPO at this time. Getting continuous peg tube feeding at this time. Denies pain at this time. Will continue to monitor.
[2018-06-25 18:20] VITALS: BP 150/62; PULSE 91; TEMP 97.8
--- NOTE | 2018-06-25 20:00 | NUR ---
REPORT RECEIVED. ASSUMED CARE FOR CAREER PLACEMENT SERVICES COUNSELOR. ASSESSMENT COMLETE. VS STABLE. PICC LINE TO LEFT UPPER ARM FLUSHED WITHOUT DIFFICULTY. JEVITY @67ML/HR TO PEG TUBE. PEG TUBE CLEANED AND DRESSING REPLACED. NOTED TO HAVE BRUISING TO RIGHT GREAT TOE. BED IN LOW POSITION. CALL LIGHT WITHIN REACH. RAIL PADS ON. WILL MONITOR.
[2018-06-25 21:00] VITALS: TEMP 97.8
[2018-06-26 00:05] VITALS: TEMP 97.8
[2018-06-26 05:39] VITALS: BP 170/60; PULSE 90; TEMP 98.7
[2018-06-26 05:50] LABS: BASO % 0.2 % (0.0-2.0); EOS # 0.3 (0.0-0.7); EOS % 2.6 % (0-4.0); GRAN # 9.1 (1.4-6.5); GRAN % 79.4 % (42.2-75.2); LYMPH # 1.3 (1.2-3.4); LYMPH % 11.4 % (20.0-51.0); MEAN CELL VOLUME 92 fl (80.0-100.0); MEAN CORPUSCULAR HGB CONC 34 g/dl (33.0-37.0); MEAN PLATELET VOLUME 10.8 fl (7.4-10.4); MONO # 0.7 (0.1-0.6); MONO % 6.1 % (1.7-9.3); PLATELET COUNT 170 K/mm3 (130-400); RED BLOOD COUNT 2.63 M/mm3 (4.20-5.60); REDCELL DISTRIBUTION WIDTH-CV 14.6 % (11.5-14.5)
[2018-06-26 05:54] LABS: HEMATOCRIT 24.1 % (42.0-52.0); HEMOGLOBIN 8.1 g/dl (13.5-18.0); MEAN CORPUSCULAR HEMOGLOBIN 31 pg (27.0-31.0)
[2018-06-26 05:58] LABS: CALCIUM 7.8 mg/dL (8.4-10.2); CREATININE, serum 1.32 (0.66-1.25); POTASSIUM 3.5 mmol/L (3.4-5.0)
--- NOTE | 2018-06-26 06:58 | NUR ---
REPORT GIVEN TO TAYLOR HOFFMAN
[2018-06-26 10:32] VITALS: BP 169/52; PULSE 94; TEMP 97.8
--- NOTE | 2018-06-26 12:28 | NUR ---
Changed PEG syringe and graduated cylinder, dated new ones. Updated of POC and she signed consent forms.
--- NOTE | 2018-06-26 13:16 | NUR ---
REBECCA mcadams met with patient and patient's to discuss discharge plan. Patient transferred back to [facility] yesterday (06/25). Patient lives with his (Dolores) in [employer]. Patient's PCP is Dr. Sanders at [facility] and also receives his medications at [facility]. Patient has a cane and walker at home and reports independence with ADLs prior to stroke and hospitalization. Patient's DPOA-HC is in EMR and it designates his . Patient and patient's hope for patient to return home upon discharge if possible. REBECCA mcadams reminded patient's of the team conferences on Monday and will deliver team conference notes every Monday. REBECCA to continue to follow.
[2018-06-26 16:35] VITALS: BP 156/51; PULSE 77; TEMP 98.9
--- NOTE | 2018-06-26 22:12 | NUR ---
See new TF orders. Ortho shoe obtained for painful rt great toe: distal end has defined irregular area of purple color with surrounding redness. SCDs to BLE, air mattress in place, call lt in reach. Pt wears pull ups/depends for stool incont, adams to DD with sediment. Report to TAYLOR Childress
--- NOTE | 2018-06-26 23:00 | NUR ---
Shift assessment complete. Patient lying in bed, turned to left side with pillow. Denies pain. PEG residual 0ml. PEG flushed with 30ml before and after med administration. Denies further needs. Will continue to assess.
[2018-06-27 03:36] VITALS: BP 170/40; PULSE 93; TEMP 98.2
--- NOTE | 2018-06-27 03:49 | NUR ---
Patient BP 170/40, resps 28-30. Patient c/o 10/10 pain in right great toe, ONLY. Denies chest pain. Eloisa WIRE SPLICER notified. ABG's ordered. Prn tylenol given for pain. Will recheck VS in 1 hour. Respiratory notified to draw ABG's.
[2018-06-27 04:12] LABS: ARTERIAL BLD GAS O2 SATURATION 93.6 % (92-100); ARTERIAL BLD GAS TCO2 CT 24.7; ARTERIAL BLOOD GAS BASE EXCESS 0.6 (-2-2); ARTERIAL BLOOD GAS HCO3 23.7 meq/L (22-26); ARTERIAL BLOOD GAS PCO2 31.6 mmHg (35-45); ARTERIAL BLOOD GAS PO2 72.6 mmHg (80-100); ARTERIAL BLOOD GAS pH 7.49 (7.35-7.45)
--- NOTE | 2018-06-27 06:20 | NUR ---
Patient supine, in bed. Patient c/o pain in right great toe. Declines pain medication. Tachypnea noted. Not changed from previous assessment. Will continue to monitor.
[2018-06-27 06:43] VITALS: BP 148/46
--- NOTE | 2018-06-27 09:00 | NUR ---
PICC intact left upper arm with sterile dressing change done with insertion site cleansed with chloraprep x 1, chlorhexidine impregnated disk applied, skin prep, stat lock, and tegaderm applied. no signs or symptoms of IV complications noted. no concerns voiced. re-wrapped with iqra to protect catheter.
--- NOTE | 2018-06-27 13:20 | NUR ---
contacted due to unable to flush PICC line. Flushed red port with 10 mL normal saline with good blood return and lab drawn. Unable to flush purple port. Advised primary care nurse, Aicha, to obtain order for cath killian.
[2018-06-27 13:21] LABS: CALCIUM 8.1 mg/dL (8.4-10.2); CREATININE, serum 1.17 (0.66-1.25); MAGNESIUM 2.1 mg/dL (1.6-2.3); POTASSIUM 4.3 mmol/L (3.4-5.0); URIC ACID 3.4 mg/dL (3.5-8.5)
--- NOTE | 2018-06-27 16:16 | NUR ---
SW student presented IPR Team Conference Notes to patient. SW student explained the scale used to rate tasks. Patient did not have any questions. SW to continue to follow.
--- NOTE | 2018-06-27 16:36 | NUR ---
Patient resting in bed at this time following a full day of therapies. Patient tolerating continuous tube feedings today. Stool culture collected and sent to lab - negative for CDIFF. Other cultures are still out at this time. Will continue to monitor.
[2018-06-27 17:22] VITALS: BP 148/70; PULSE 84; TEMP 98.5
--- NOTE | 2018-06-27 19:30 | NUR ---
SHIFT REPORT OBTAINED FROM MIKKI HIGUERA RN. PT SLEEPING WITH SNORUS RESP. NO DISTRESS. JEVITY INFUSING TO PEG TUBE AT 67CC/HR WITHOUT DIFFICULTY. ABD DISTENTION NOTED. NO RESIDUAL FROM PEG. TINKLING BOWELSOUNDS HEARD THROUGHOUT. PT APHASIC. POINTS TO COMMUNICATION BOARD WHEN NEEDING SOMETHING. REFUSES SCD'S AT THIS TIME. SEIZURE PRECAUTIONS NOTED. CALL LIGHT IN REACH.
--- NOTE | 2018-06-27 20:14 | NUR ---
Placed Holter Monitor on patient's left chest. All the equipment is located in patient room.
[2018-06-28 05:23] VITALS: BP 163/53; PULSE 78; TEMP 98.4
--- NOTE | 2018-06-28 05:26 | NUR ---
PICC LINE LT ARM. PURPLE PORT INITIALLY FLUSH BUT SLUGGISH. NO BLOOD RETURN. RED PORT WILL NOT FLUSH. NO BLOOD RETURN. ATTEMPTED HEPARING FLUSH. REPOSITIONG PT. HAD PT COUGH. WARM PACK TO ARM. NO RESULT. WILL HAVE DAY SHIFT NOTIFY IV THERAPY TEAM FOR RECOMMENDATIONS. PT ORIENTED. FOLLOWS DIRECTIONS. TF CONTIUES INFUSING TO PEG W/O DIFFICULTY. NO ASPIRATION NOTED. PT HAS HAD SMALL EPISODES OF SLEEP APNEA LASTING NO LONGER THAN 20SEC. O2 SAT 93% WHILE SLEEPING ON ROOM AIR.
--- NOTE | 2018-06-28 08:25 | NUR ---
Visited with primary care nurse regarding PICC. She reports unable to flush PICC lumens. Advised Cath killian down each lumen. To change the cap if not done today. will continue to monitor.
--- NOTE | 2018-06-28 08:33 | NUR ---
Spoke with Lnea from [facility] about PICC complications and recommendations for cath flow.
--- NOTE | 2018-06-28 16:32 | NUR ---
Second attempt to flush PICC lumens. Purple lumen very, very sluggish and no blood return. Only able to instill 1 ml of Cath Flow into each port, will follow up. Pt's visited this afternoon, answered questions about MCOT monitor. Pt to chair between therapies today. Resting with eyes closed now. Feet up in recliner. Rt great toe injury has purple center, redness around it, and redness up instep, tender to touch, ortho shoe in place with ambulation. Reddened 0.5 cm area to rt heel tender to touch. Purple PICC lumen took full 2 ml of Cath Flow, red lumen still unable to administer remaining 1 ml. Will follow up.
[2018-06-28 17:04] VITALS: BP 147/56; PULSE 88; TEMP 98.2
--- NOTE | 2018-06-28 20:03 | NUR ---
After CathFLow instilled in PICC lumens for 2 hours they had good blood return and flushed well with 20 ml NS. Bed alarm on, PEG TF running. Call lt in reach. Report to TAYLOR Venegas.
--- NOTE | 2018-06-28 21:00 | NUR ---
PT FRUSTRATED WITH APHASIA. RT SIDED WEAKNESS. HAS SOME BATTERY REPAIRER AND LEG STRENGTH, JUST WEAK. PEG TUBE HAS SOME REDNESS AT SITE.
--- NOTE | 2018-06-28 21:09 | NUR ---
Imodium given once on day shift after pt had liquid stool. Miralax held. Informed pt of stool test results. Able to understand some of pt's verbalized communications.
[2018-06-29 05:29] VITALS: BP 174/55; PULSE 93; TEMP 98.1
[2018-06-29 06:08] LABS: BASO % 0.4 % (0.0-2.0); EOS # 0.2 (0.0-0.7); LYMPH # 1.3 (1.2-3.4); LYMPH % 15.6 % (20.0-51.0); MEAN CELL VOLUME 93 fl (80.0-100.0); MEAN CORPUSCULAR HGB CONC 32 g/dl (33.0-37.0); MEAN PLATELET VOLUME 10.4 fl (7.4-10.4); MONO # 0.6 (0.1-0.6); MONO % 6.8 % (1.7-9.3); RED BLOOD COUNT 2.58 M/mm3 (4.20-5.60); REDCELL DISTRIBUTION WIDTH-CV 13.8 % (11.5-14.5)
[2018-06-29 06:12] LABS: HEMATOCRIT 24.1 % (42.0-52.0); HEMOGLOBIN 7.7 g/dl (13.5-18.0); MEAN CORPUSCULAR HEMOGLOBIN 30 pg (27.0-31.0); PLATELET COUNT 271 K/mm3 (130-400)
[2018-06-29 06:17] LABS: ALBUMIN 2.6 gm/dL (3.5-5.0); BILIRUBIN,TOTAL 0.3 mg/dL (0.0-1.0); CALCIUM 8.2 mg/dL (8.4-10.2); CREATININE, serum 1.38 (0.66-1.25); MAGNESIUM 2.2 mg/dL (1.6-2.3); POTASSIUM 4.3 mmol/L (3.4-5.0); TOTAL PROTEIN 5.9 gm/dL (6.4-8.2)
--- NOTE | 2018-06-29 15:05 | NUR ---
SW student met with patient and patient's to check in. The plan is to re-evaluate goals and progress next week. Patient and patient's had no further questions or requests.
[2018-06-29 16:16] VITALS: BP 140/40; PULSE 93; TEMP 98.3
--- NOTE | 2018-06-29 18:33 | NUR ---
Patient resting in bed at this time with continuous feeding running at 69 ml/hr per orders. Denies pain at this time. Call light in reach and in pleasent mood. Patient is now mechanical soft foods with nectar thick liquids. Will continue to monitor.
--- NOTE | 2018-06-29 19:31 | NUR ---
Pt sleeping with HOB elevated. Easily arousable. Pt does not speak appropriately, but can answer yes or no questions with head nods and uses communication sheet to state needs. Pt denies pain. No distress noted. PEG tube with continuous tube feeding infusing. BS+. Abdomen distended, but nontender. Respirations even and unlabored. Lungs clear to auscultation. 1+ pitting edema noted to RLE. Hopper catheter to dependent drainage with clear, yellow urine noted. Pt has right sided weakness. No needs noted at this time.
--- NOTE | 2018-06-29 20:20 | NUR ---
Patient was started on his evening continous feeding regimen at this time. Denies pain and is resting in bed, with call light in reach and bed alarm on.
--- NOTE | 2018-06-29 21:55 | NUR ---
Pt has been sleepy, but arousable this evening. Medications given crushed via PEG tube due to pt resting. PEG tube flushed after meds. No distress noted.
--- NOTE | 2018-06-30 00:15 | NUR ---
Pt resting with HOB elevated. No distress noted. Clear yellow urine draining via adams catheter. Continuous tube feeding to PEG tube. SSI administered per orders. No needs noted. Pt denies pain.
--- NOTE | 2018-06-30 04:00 | NUR ---
Pt resting. No distress noted. Continuous tubing feeding via PEG tube discontinued after 30 cc flush per order. Pts abdomen is very distended, but pt denies pain. BS+. No residual noted.
[2018-06-30 05:25] VITALS: BP 129/54; PULSE 90; TEMP 98.3
--- NOTE | 2018-06-30 05:40 | NUR ---
Pt resting this AM. No distress. Pt denies pain. Pt slept periodically throughout the night.
--- NOTE | 2018-06-30 10:43 | NUR ---
Patient up to the bathroom this am. Minimal assist with walker. Patient changed his shirt with small amount of assist. He did well with [facility] soft breakfast. Monitored him, He did get frustrated with me felt like I was interupting his breakfast. Fresh linens. He had therapy this am. Juan knight.
--- NOTE | 2018-06-30 12:07 | NUR ---
Patient sitting up in chair, working on lunch. He is feeling worn out after therapy all morning. Denies needs.
--- NOTE | 2018-06-30 13:03 | NUR ---
Finished lunch. Denies needs. Just frustrated at times with the difficulty in communication
[2018-06-30 17:38] VITALS: BP 139/51; PULSE 92; TEMP 97.6
--- NOTE | 2018-06-30 18:00 | NUR ---
No complaints. HOB elevated. Tube feeding started per PEG. No residual. Abdomen distended. Communicates with picture board and a few words.
--- NOTE | 2018-06-30 19:20 | NUR ---
Pt sleeping, but easily arousable. No distress noted. Pt denies pain or discomfort, but c/o being cold. Warm blanket applied for comfort. Resp even and unlabored. Lugns clear. Abdomen firm, distended. BS+, abdomen nontender. Continuous TF Jevity 1.5 @67 mL/hr infusing to PEG tube. Residual assessed at 5mL. Hopper catheter to dependent drainage- clear, yellow output. No needs noted at this time.
--- NOTE | 2018-07-01 04:00 | NUR ---
Continous Tube Feeding stopped per MD order. Pt resting. No distress noted.
[2018-07-01 06:00] VITALS: BP 150/66; PULSE 93; TEMP 98.4
--- NOTE | 2018-07-01 06:03 | NUR ---
Pt resting with HOB elevated this AM. Denies pain. AM insulin held due to CBG of 75.
--- NOTE | 2018-07-01 10:21 | NUR ---
Patient resting in bed at this time, call light in reach and alarm is on. Patient ate 100% of his breakfast this morning. Patient had some serrato drainage around peg tube site, cleaned with sterile water patted dry and applied drain gauze to area. Patient tolerated with minimal discomfort reported. Patient had an eppisode of diarrhea this morning and was given prn imodium with good effect. Denies pain at this time. Will continue to monitor.
[2018-07-01 17:33] VITALS: BP 143/55; PULSE 89; TEMP 97.6
--- NOTE | 2018-07-02 05:02 | NUR ---
RESTING QUIETLY. PT DENIES NEED FOR PAIN MEDS. PT DID STATE HE WASN'T FEELING WELL OVERALL.
[2018-07-02 05:28] VITALS: BP 146/38; PULSE 93; TEMP 98.1
[2018-07-02 06:50] LABS: ALBUMIN 2.6 gm/dL (3.5-5.0); BILIRUBIN,TOTAL 0.2 mg/dL (0.0-1.0); CALCIUM 8.1 mg/dL (8.4-10.2); CREATININE, serum 1.42 (0.66-1.25); MAGNESIUM 2.1 mg/dL (1.6-2.3); PHOSPHOROUS 3.7 mg/dL (2.5-4.5); TOTAL PROTEIN 5.9 gm/dL (6.4-8.2)
[2018-07-02 06:57] LABS: PRE ALBUMIN 14.4 mg/dL (17.6-36.0)
--- NOTE | 2018-07-02 11:13 | NUR ---
First visit from the academic adviser. No needs right now.
--- NOTE | 2018-07-02 16:45 | NUR ---
REBECCA contacted patient's , Dolores, to discuss scheduling a family conference. Patient's reports 1:15pm on Monday works well for her.
[2018-07-02 17:26] VITALS: BP 142/55; PULSE 84; TEMP 98.3
--- NOTE | 2018-07-02 22:56 | NUR ---
Shift assessment complete. Patient awake, in bed. Denies pain using communication card. RLE noted to be reddened and swollen. Painful to the touch per pt statement. Pt refusing SCD's. Denied further needs at this time, will continue to monitor.
[2018-07-03 04:12] VITALS: BP 127/37; PULSE 94; TEMP 98.6
--- NOTE | 2018-07-03 04:15 | NUR ---
Patient in bed, sleeping. Easy to arouse. Tube feeding shut off per order. Residual checked, 0ml. G-tube flushed with 30ml water. Patient tolerated well. Denies pain. Will continue to monitor.
--- NOTE | 2018-07-03 09:57 | NUR ---
Report from TAYLOR Childress. Pt to chair for breakfast, sadia mech soft diet and nectar thick liquids. Meds given crushed via PEG. Hopper to Dependent drainage, emptied. PEG TF is off, buttons intact, pt denies tenderness to site. Pt's distal right great toe has less general redness, localized ecchymosis remains about the same size, rates pain 4/10 to site with contact.
[2018-07-03 18:00] VITALS: BP 131/57; PULSE 89; TEMP 97.7
--- NOTE | 2018-07-03 20:46 | NUR ---
Pt's MCOT heart monitor battery was low, followed booklet instructions to remove, charge, and applied with new patch. Report to TAYLOR Wise. Pt in bed with alarm on, call lt in reach. TF started by TAYLOR Yanes at 1900.
[2018-07-04 06:15] VITALS: BP 141/49; PULSE 93; TEMP 97.4
--- NOTE | 2018-07-04 07:29 | NUR ---
Patient report given to TAYLOR Holcomb. Patient rested well throughout the night. Tolerated continuous tube feeding at 67 ml/hr. Tube feeding started around 1900 last night and turned off at 0500 this am. Patient denies pain or n/v. Blood sugar 166 this am, 6 units Novolog given.
--- NOTE | 2018-07-04 13:43 | NUR ---
Patient resting in chair at this time, call light in reach and alarm is on. Patient attended therapies this morning, but did have a low blood sugar and was given 4 oz orange Juice and saltine crackers. Rechecked blood sugar and was still low so gave him 4 oz of milk and mary crackers with good effect. Will continue to monitor.
--- NOTE | 2018-07-04 15:29 | NUR ---
SW student and SW attended IPR team conference followed by family conference with patient and patient's . Also present was IPR director, PT, OT, and speech. Therapists started by discussing progress with therapy and continuing goals. Patient is now on a thickened liquids diet and dietetics is discontinuing tube feeds. The goal is for patient to discharge and only need a cane for ambulating. A tentative discharge date is set for 07/13 with re-evaluation done next week by IPR team. Patient and patient's are agreeable to this plan. SW to follow up with patient with team conference notes.
[2018-07-04 17:31] VITALS: BP 145/44; PULSE 91; TEMP 97.8
--- NOTE | 2018-07-04 19:53 | NUR ---
Patient currently resting in bed at this time. No episodes of low blood sugar this afternoon. Reported off to night nurse.
--- NOTE | 2018-07-04 22:00 | NUR ---
Patient awakened for HS meds given via peg tube. Gauze dressing CDI to peg site. Peg site slightly reddened but no drainage. Patient quiet, denies pain. Declines snack and SSI held due to low blood sugars earlier.
--- NOTE | 2018-07-05 02:28 | NUR ---
Patient has been resting with eyes closed. Respirations with ease.
[2018-07-05 04:16] VITALS: BP 163/69; PULSE 96; TEMP 98.5
--- NOTE | 2018-07-05 05:15 | NUR ---
Patient awakened for adams catheter to be DC'd. Procedure reviewed with patient, cath care done and adams cath dc'd without problems. Althea-care provided.
--- NOTE | 2018-07-05 15:25 | NUR ---
Patient resting in recliner at this time, call light in reach and alarm is on. Patient attended all therapies today. He had a bowel movement this morning. Reported pain to his right lateral foot and Dr. Lee was called due to patient reporting more pain to the area and wanting to have it looked at again. Dr. Lee said that he would send a message for Dr. Christopher to address it upon his return tomorrow. Patient had low blood sugars yesterday afternoon and spoke with Dr. Lee regarding the suggestion of lowering Levimier to lesser dose due to this effect. See new order for Levimier 15 units BID. Patient was updated on this change.
[2018-07-05 16:56] VITALS: BP 121/39; PULSE 89; TEMP 98.5
--- NOTE | 2018-07-05 21:00 | NUR ---
PT SLEEPING. LOUD IRREG RESP. PERIODS OF APNEA NOTED APPROX 15-20 SEC. THIS HAS BEEN NORMAL FOR PT THROUGHOUT THIS STAY. O2 SAT 96% PER SPOT CHECK. RECHECKED BP DIASTOLIC STILL LOW BETWEEN 45-49. CONTINUED SEIZURE PRECAUTIONS. APHASIC. ABLE TO SAY A FEW WORDS. DENIES PAIN.
[2018-07-05 23:30] VITALS: BP 144/49; PULSE 90
--- NOTE | 2018-07-06 00:10 | NUR ---
ASSISTED TO BR WITH WALKER. PT HAS A SIGNIFICANT FATIGUED AFFECT. PT FRUSTRATED UNABLE TO COMMUNICATE NEEDS CLEARLY. HAD LOOSE GREEN STOOL WITH LARGE AMT A FLATUS. SEE MAR FOR IMMODIUM GIVEN PER PEG.
[2018-07-06 05:17] VITALS: BP 155/65; PULSE 90; TEMP 98.9
--- NOTE | 2018-07-06 05:28 | NUR ---
LAB HERE FOR BLOOD DRAW VIA PICC. ACCUCHECK 70. PT DRANK NECTAR THICK OJ AT THIS TIME.
--- NOTE | 2018-07-06 06:22 | NUR ---
CGA WITH WALKER TO BR. VOIDED WITH LG AMT FLATUS. HAD SMALL FLEX OF GREEN STOOL. PT AMB TO RECLINER. CALL LIGHT IN REACH. CHAIR ALARM SET.
[2018-07-06 07:23] LABS: BASO % 0.4 % (0.0-2.0); EOS # 0.4 (0.0-0.7); EOS % 4.5 % (0-4.0); GRAN % 63.6 % (42.2-75.2); LYMPH # 1.8 (1.2-3.4); LYMPH % 23.1 % (20.0-51.0); MEAN CELL VOLUME 94 fl (80.0-100.0); MEAN CORPUSCULAR HGB CONC 31 g/dl (33.0-37.0); MEAN PLATELET VOLUME 9.7 fl (7.4-10.4); MONO # 0.6 (0.1-0.6); MONO % 8.1 % (1.7-9.3); PLATELET COUNT 418 K/mm3 (130-400); RED BLOOD COUNT 2.75 M/mm3 (4.20-5.60); REDCELL DISTRIBUTION WIDTH-CV 14.3 % (11.5-14.5)
[2018-07-06 07:25] LABS: HEMATOCRIT 25.8 % (42.0-52.0); MEAN CORPUSCULAR HEMOGLOBIN 29 pg (27.0-31.0)
[2018-07-06 07:37] LABS: CALCIUM 8.5 mg/dL (8.4-10.2); CREATININE, serum 1.51 (0.66-1.25); MAGNESIUM 2.1 mg/dL (1.6-2.3); POTASSIUM 3.9 mmol/L (3.4-5.0)
--- NOTE | 2018-07-06 08:37 | NUR ---
Report from TAYLOR Venegas. Pt to chair for breakfast. Meds given crushed via PEG, asked pt if he wanted to take his bowel med and he nods yes. Declined tylenol for toe pain. PICC without complications. Stat lock to PEG tube, removed dressing with scant yellow drainage prior to shower. Pt's MCOT monitor to chest, mobile unit in reach.
--- NOTE | 2018-07-06 08:45 | NUR ---
Dr. Christopher aware of pt's redness/pain to lateral right foot. Enc elevation, possibly ice.
[2018-07-06 17:57] VITALS: BP 130/48; PULSE 91; TEMP 97.5
--- NOTE | 2018-07-06 20:00 | NUR ---
TO BR WITH WALKER. HAD LG DARK GREEN DIARRHEA. VOIDING W/O DIFFICULTY. WEARS ADULTS BRIEFS. CHANGED CLOTHING WITH MINIMAL ASSIST. HOLTER MONITOR IN PLACE. READY FOR BED. HS MEDS VIA PEG TUBE W/EASE. DENIES PAIN.
[2018-07-07 05:31] VITALS: BP 164/55; PULSE 100; TEMP 98.1
--- NOTE | 2018-07-07 09:39 | NUR ---
Report from TAYLOR Venegas. Pt toileted, to chair for breakfast, dressed, meds crushed per PEG. Walked to therapy gym with walker.
[2018-07-07 15:31] VITALS: BP 140/52; PULSE 93; TEMP 97.5
--- NOTE | 2018-07-07 19:21 | NUR ---
visited this afternoon. Pt performed chair transfers and amb in room with walker well. Report to TAYLOR Venegas. Pt toileted at shift change.
--- NOTE | 2018-07-07 21:00 | NUR ---
NOTED PT HAS LABORED AND IRREGULAR RESPIRATIONS WITH OCCASIONAL APNEIC PERIODS LASTING 10-20 SEC- WHICH HAS BEEN HIS NORMAL SINCE ADMISSION. O2 SAT MAINTAIN ABOVE 90%.
--- NOTE | 2018-07-07 22:45 | NUR ---
PT RESTING IN BED. APHASIC. EASILT FRUSTRATED WITH COMMUNICATION ISSUES. DENIES PAIN. RT SIDE SL WEAKER THAN LEFT. HOLTER MONITOR IN PLACE. CALL LIGHT IN REACH. BED ALARM SET.
--- NOTE | 2018-07-08 07:15 | NUR ---
Bedside shift report received from TAYLOR Venegas. Pt in bed resting, wants to get up to chair for breakast. Will assist.
--- NOTE | 2018-07-08 11:42 | NUR ---
Assessment charted. Meds given this am in PEG tube. Checked residual at 1100 and only 5 ccs found, flushed, cleaned site and changed bandage around PEG insertion site. Pt doing well, denies needs, has pain and tenderness to R outer aspect of foot and R great toe. PICC to YAAN flushes and has good blood return. R hand cane pusher weaker than L. Denies needs, will continue to monitor.
[2018-07-08 15:38] VITALS: BP 143/61; PULSE 85; TEMP 97.6
--- NOTE | 2018-07-08 17:52 | NUR ---
Pt went outside with Thomas MATILDA and today, able to ambulate to courtyard and back independently with SBA. Had 3 loose bowel movements today. Meds through PEG tube given over shift. Denies needs, resting in chair at side of bed, will give bedside shift report to nightshift nurse who will resume care.
--- NOTE | 2018-07-08 20:00 | NUR ---
CGA TRANSFER TO FROM [facility]. HAD LOOSE BROWN STOOL. NEEDED ASSIST WITH HYGIENE. WEARS PULL UPS . SEE MAR FOR IMMODIUM GIVEN. PT TRYING TO VERBALIZE WORDS. EASILY FRUSTRATED BUT SMILES WHEN ABLE TO SAY A FEW WORDS. PT VERY FATIGUED. HOLTER MONITOR INTACT. DENIES NEED FOR CORBY MEDICATION. CALL LIGHTIN REACH.
--- NOTE | 2018-07-09 01:40 | NUR ---
PT USED CALL LIGHT. HAVING DIFFICULTY COMMUNICATING THAT HE HEARD A NORIEGA FROM THE HOLTER MONITOR PHONE. HOLTER SENSOR INDICATES LOW BATTERIES. SHUT MONITOR OFF AND BEGAN CHARGING SENSOR AFTER TAKING IT OFF PATIENT CHEST. AREA ON CHEST RED AND SL BLISTERED. AREA CLEANED AND DRIED.
--- NOTE | 2018-07-09 02:00 | NUR ---
PT C/O OF RT FOOT PAIN BUT REFUSED PAIN MED. ASSIST TO BR WITH WALKER. PASSED LG AMT OF FLATUS. NO DIARRHEA. BACK TO BED.
--- NOTE | 2018-07-09 03:46 | NUR ---
GAVE THICKENED OJ. PT HAD REFUSED HS SNACK LAST NIGHT.
[2018-07-09 04:53] VITALS: BP 139/79; PULSE 84; TEMP 98.7
[2018-07-09 07:44] LABS: ALBUMIN 3.2 gm/dL (3.5-5.0); BILIRUBIN,TOTAL 0.5 mg/dL (0.0-1.0); CREATININE, serum 1.56 (0.66-1.25); PHOSPHOROUS 4.1 mg/dL (2.5-4.5); POTASSIUM 4.3 mmol/L (3.4-5.0); TOTAL PROTEIN 7.1 gm/dL (6.4-8.2)
[2018-07-09 07:51] LABS: PRE ALBUMIN 21.5 mg/dL (17.6-36.0)
[2018-07-09 09:10] VITALS: BP 128/53; PULSE 109; TEMP 98.7
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
--- NOTE | 2018-07-09 10:40 | NUR ---
Provided cool washcloth for pt's forehead. Left Dr. Christopher voicemail of changes.
[2018-07-09 15:27] VITALS: BP 140/49; PULSE 88; TEMP 98.8
--- NOTE | 2018-07-09 18:13 | NUR ---
Pt to bed with alarm on, call light in reach.
[2018-07-09 19:02] VITALS: BP 150/53; PULSE 86; TEMP 98.1
--- NOTE | 2018-07-09 21:00 | NUR ---
Patient returned from bathroom with assist and rests self back in bed. Affect quiet and has annoyed look on face when nurse into give meds. Reviewed and given. Peg tube flushes with ease and dressing CDI. Refuses SCD's at night. Denies pain. Declines snack.
--- NOTE | 2018-07-09 23:14 | NUR ---
rests with eyes closed. Respirations with ease.
--- NOTE | 2018-07-10 01:41 | NUR ---
PATIENT RESTS IN BED WITH EYES CLOSED. RESPIRATIONS WITH EASE.
[2018-07-10 03:42] VITALS: BP 153/65; PULSE 98; TEMP 97.9
--- NOTE | 2018-07-10 06:05 | NUR ---
PATIENT RESTS IN BED WITH EYES CLOSED.
--- NOTE | 2018-07-10 15:37 | NUR ---
SW met with patient and to check in after the weekend. Patient reports he is tired from therapy today and would like to take a nap. SW inquired if patient and have thought about the type of PT/OT they would like when discharged. Patient's reports they would prefer outpatient PT/OT in [place] instead of Home Health. SW reports she will inform the team of this preference. Patient's also inquired if patient will need any DME when he is discharged. SW reported that the team will talk about those recommendations during the IPR team conference tomorrow morning and SW will follow up with patient and after that meeting.
--- NOTE | 2018-07-10 17:18 | NUR ---
Patient resting in recliner with legs elevated at this time, call light in reach and chair alarm is on. Patient had two episodes where his head hurt also affecting his left eye was given prn tylenol with some effect. He was able to finish therapies today. Left ear has wax build up in it and patient has been given scheduled ear drops to help with this. Will continue to monitor. Patient has also been having frequency with urination and this nurse will discuss with Dr. Christopher tomorrow during team meeting. No odorous urine reported and no pain with urination.
[2018-07-10 17:19] VITALS: BP 127/49; PULSE 86; TEMP 98.1
--- NOTE | 2018-07-10 20:30 | NUR ---
Patient up to the bathroom with walker and manages pullups down and up. Has BM and requests nurse to wipe him/done. Nurse assisted patient with slippers on (having difficulty) and covers on and off. Patient denies pain.
--- NOTE | 2018-07-11 02:55 | NUR ---
Patient has been resting with eyes closed. Respirations with ease.
[2018-07-11 04:37] VITALS: BP 134/53; PULSE 96; TEMP 97.9
--- NOTE | 2018-07-11 05:07 | NUR ---
PATIENT DENIES HEADACHE THIS AM. TO BATHROOM AND BACK TO BED.
--- NOTE | 2018-07-11 06:10 | NUR ---
RESTS WITH EYES CLOSED.
--- NOTE | 2018-07-11 10:11 | NUR ---
Received report from night nurse that it was decided to leave PICC in place until right before his discharge home. Patient will be discharging home Monday.
[2018-07-11 12:40] LABS: COLLECTION METHOD CLEAN CATCH
[2018-07-11 12:45] LABS: MUCOUS Present /lpf; PH 5 (5-8); SQUAMOUS EPITHELIAL 0-2 /hpf; URINE APPEARANCE Hazy; URINE BACTERIA None Seen /hpf; URINE BILIRUBIN Positive (NEGATIVE); URINE BLOOD Negative (NEGATIVE); URINE COLOR Amber; URINE GLUCOSE Negative (NEGATIVE); URINE KETONE Trace (NEGATIVE); URINE LEUKOCYTE ESTERASE Negative (NEGATIVE); URINE NITRATE Negative (NEGATIVE); URINE PROTEIN(semi-quant) 1+ (NEGATIVE); URINE RBC 0-2 /hpf
--- NOTE | 2018-07-11 12:51 | NUR ---
Patient resting in recliner at this time, call light in reach and Independent in his room. Patient had a CT scan completed this morning due to his having headaches the last few days at times 12/13. See also new orders for Ultram PRN to help with this. Patient did report that the pain to his right foot has improved and has no pain to the touch. It still has some redness to the right lateral side, but patient has stated that it has definatly improved. Will continue to monitor.
--- NOTE | 2018-07-11 16:55 | NUR ---
SW met with patient and to review IPR team conference notes and to discuss discharge on Monday. Patient is planning to use [facility] for outpatient PT/OT/ST. It was also recommended for patient to use a cane for ambulation. SW inquired if patient has a cane or if he will need one. Patient's reported they already have a cane at home. SW will follow up with patient and on Monday before discharge.
[2018-07-11 18:24] VITALS: BP 135/67; PULSE 99; TEMP 98.2
--- NOTE | 2018-07-11 20:00 | NUR ---
PT MOD I IN ROOM WITH CANE. STEADY GAIT. SMILING. ABLE TO SAY A FEW CLEAR WORDS. GETS FRUSTRATED EASILY WITH SITUATION.
--- NOTE | 2018-07-12 03:30 | NUR ---
USED BR CALL LIGHT. PT SITTING IN BR ON TOILET. CRYING. fRUSTRATED WITH EVERYTHING. GAVE EMOTION AL SUPPORT.
[2018-07-12 05:17] VITALS: BP 149/70; PULSE 82; TEMP 97.7
--- NOTE | 2018-07-12 18:05 | NUR ---
Vomitted sm-med mucousy emesis of food in toilet, brown-red color per Thomas, FUSE ASSEMBLER, pt had roast beef and gravy.
[2018-07-12 18:12] VITALS: BP 150/70; PULSE 102; TEMP 97.5
--- NOTE | 2018-07-12 18:26 | NUR ---
Pt reports he ate too fast, also pushed fluids early this afternoon- pt drank 720 ml of nectar thick OJ. Denies nausea or stomach ache. States he has felt chilled since going outside this afternoon.
--- NOTE | 2018-07-12 21:00 | NUR ---
PT RESTING IN RECLINER. MOD I IN ROOM WITH CANE. SLOW STEADY GAIT. RT EMBOSSOGRAPH OPERATOR SL WEAKER THAN LT. APHASIC. VERY DIFFIULT TO UNDERSTAND. PT MORE FATIGUED AT NIGHT. READY FOR BED. DENEIS PAIN AT THIS TIME. PEG WITH NO RESIDUAL. WILL DC PICC IN AM. CALL LIGHT IN REACFH
--- NOTE | 2018-07-12 22:14 | NUR ---
Faxed Face Sheet and latest Progress Note to Dr. Lombardo's office noting to follow up for Peg tube removal and ulcers. Received "OK" fax receipt.
--- NOTE | 2018-07-12 22:28 | NUR ---
Faxed [facility] OP PT/OT and OP ST offices respectively face sheet, latest progress note from physician and therapists. Received "OK" fax receipts from both.
--- NOTE | 2018-07-12 23:05 | NUR ---
Demonstrated to pt's who in return demonstrated proper technique for checking PEG residual, flushing with plunger in syringe and also flushing by gravity without plunger, and changing drain sponge to PEG. Provided supply of drain sponge packets and PEG syringes (out of 60 ml syringes and accepting of 12 ml syringes). Denies questions.
--- NOTE | 2018-07-13 04:32 | NUR ---
UP TO BR INDEPENDENTLY WITH CANE. VOIDING SEVERAL TIMES TONIGHT D/T INCREASED FLUID INTAKE LAST NIGHT D/T DETERMINATION DEHYDRATION. VSS HAD X1 LOOSE STOOL LAST NIGHT BUT REFUSED IMMODIUM.
[2018-07-13 04:42] VITALS: BP 160/56; PULSE 93; TEMP 97.8
--- NOTE | 2018-07-13 07:19 | NUR ---
OLD PICC LINE SITE REMAINS CDI. PT UP TO RECLINER. READY FOR THE DAY.
[2018-07-13] MEDS ORDERED: DEBROX OT (08:25)
[2018-07-13] MEDS ORDERED: LIPITOR 80MG80 MG PO (08:26)
[2018-07-13] MEDS ORDERED: PROAIR HFA0.09 MG/AC IH (08:27)
[2018-07-13] MEDS ORDERED: TYLENOL 325MG325 MG PO (08:27)
[2018-07-13] MEDS ORDERED: APRESOLINE 10MG10 MG PO (08:28)
[2018-07-13] MEDS ORDERED: ZESTRIL 10MG10 MG PO (08:28)
[2018-07-13] MEDS ORDERED: EFFER-K20 MEQ PO (08:39)
--- NOTE | 2018-07-13 09:08 | NUR ---
Initial visit; Patient thanked Jack Machine Operator for looking in on him and happily states he will be going home today. Jack Machine Operator offered God's blessings.
--- NOTE | 2018-07-13 10:09 | NUR ---
Patient resting in chair at this time with by his side. Patient was able to take meds po this morning. Denies pain at this time.
--- NOTE | 2018-07-13 11:17 | NUR ---
Follow-up visit; Patient thanked Director Medical Writing for stopping in again and wishing him well as he leaves for home this afternoon.
--- NOTE | 2018-07-13 11:30 | NUR ---
Patient Health Summary, Discharge Summary, and Home Meds printed and reviewed with patient and . Stressed importance of follow up appointments. Reviewed medications and called prescriptions for Pantoprazole, Ferrous Sulfate, Plavix to pharmacy of choice. Belongings gathered by Cammie including upper dentures, bilateral hearing aids, cane, glasses, clothes and misc. items. Patient transported via wheelchair by Cammie and seatbelted for ride home with . Patient and denied any questions.
== END 2018-07-13 11:30 | disposition home or self-care (01) | DRG 56 ==
PROVIDERS: Nurse Practitioner Family; ADMIT Internal Medicine
DX: I69.951 Hemiplegia and hemiparesis following unspecified cerebrovascular disease affecting right dominant side (principal); K26.4 Chronic or unspecified duodenal ulcer with hemorrhage; D62 Acute posthemorrhagic anemia; N17.9 Acute kidney failure, unspecified; E87.1 Hypo-osmolality and hyponatremia; I69.920 Aphasia following unspecified cerebrovascular disease; I69.922 Dysarthria following unspecified cerebrovascular disease; I69.991 Dysphagia following unspecified cerebrovascular disease; R13.10 Dysphagia, unspecified; I12.9 Hypertensive chronic kidney disease with stage 1 through stage 4 chronic kidney disease, or unspecified chronic kidney disease; E11.22 Type 2 diabetes mellitus with diabetic chronic kidney disease; E11.649 Type 2 diabetes mellitus with hypoglycemia without coma; N18.9 Chronic kidney disease, unspecified; E87.6 Hypokalemia; J44.9 Chronic obstructive pulmonary disease, unspecified; E78.5 Hyperlipidemia, unspecified; Z79.4 Long term (current) use of insulin; F17.210 Nicotine dependence, cigarettes, uncomplicated; I73.9 Peripheral vascular disease, unspecified
CPT/HCPCS: 99222-AI; 99232-AI; 99233-AI; 99239; J1815; J2997

== ENCOUNTER 2018-08-10 10:44 | Day surgery (SDC) | payer MEDICARE, OTHER ==
[~2018-08-10] VITALS: Ht 172.7 cm; Wt 79.0 kg
[~2018-08-10 10:44] MED LIST changes: +APRESOLINE 10MG10 MG PO; +BIOTENE MOIST44.3 ML PO; +DEBROX OT; +EFFER-K20 MEQ PO; +FERROUSAL325 MG PO; +LEVEMIR100 U/ML SQ; +NOVLOG SQ; +PROAIR HFA0.09 MG/AC IH; +PROTONIX40 MG/Pack PO; +TYLENOL 325MG325 MG PO; +ZESTRIL 10MG10 MG PO
[2018-08-10] MEDS ORDERED: KLOR-CON20 MEQ PO (11:34)
[2018-08-10] MEDS ORDERED: PLAVIX 75MG TAB75 MG PO (11:35)
[2018-08-10] MEDS ORDERED: LIPITOR 80MG80 MG PO (11:36)
[2018-08-10] MEDS ORDERED: FERRO-TIME325 MG PO (11:37)
[2018-08-10] MEDS ORDERED: APRESOLINE 10MG10 MG PO (11:39)
[2018-08-10] MEDS ORDERED: PRINIVIL10 MG PO (11:40)
[2018-08-10] MEDS ORDERED: PROTONIX 40MG T40 MG PO (11:42)
[2018-08-10] MEDS ORDERED: PRILOSEC 20MG20 MG PO (11:42)
[2018-08-10] MEDS ORDERED: PROAIR HFA0.09 MG/AC IH (11:43)
[2018-08-10] MEDS ORDERED: TYLENOL 325MG325 MG PO (11:44)
[2018-08-10] MEDS ORDERED: DEBROX OT (11:45)
[2018-08-10] MEDS ORDERED: GLUCOPHAGE XR500 M1 PO (11:45)
[2018-08-10] MEDS ORDERED: IRON TABLETS325 MG PO (11:46)
[2018-08-10 12:04] VITALS: BP 146/76; PULSE 80; TEMP 97.9
[2018-08-10 12:25] VITALS: BP 170/92; PULSE 84; TEMP 97.3
--- NOTE | 2018-08-10 12:25 | NUR ---
Patient brought back to [facility]. Alert and oriented. Transfered to chair without difficulty. Vital signs stable. Denies pain and nausea. Requesting pudding and water at this time. Tolerating well. Patient educated on post op care. Dolores at bedside. Call lucas within reach, will continue to monitor.
[2018-08-10 12:40] VITALS: BP 157/77; PULSE 77
[2018-08-10 12:55] VITALS: BP 143/69; PULSE 80
--- NOTE | 2018-08-10 12:55 | NUR ---
Patient states he is feeling well. Patients handed gauze and tape for old peg tube site. Vital signs stable, will continue to monitor.
--- NOTE | 2018-08-10 13:15 | NUR ---
Discharge instructions reviewed with patient and . All questions answered. Patient to get dressed at this time.
--- NOTE | 2018-08-10 13:30 | NUR ---
Patient brought down to lobby via wheel chair. To be driven home by Dolores.
[2018-08-10 14:15] VITALS: BP 148/76; PULSE 81
== END 2018-08-10 13:30 | disposition home or self-care (01) ==
LOC: SDCO 10:44
DX: Z43.1 Encounter for attention to gastrostomy (principal); T85.848A Pain due to other internal prosthetic devices, implants and grafts, initial encounter; R13.10 Dysphagia, unspecified; Z87.11 Personal history of peptic ulcer disease; Z79.899 Other long term (current) drug therapy; Z79.02 Long term (current) use of antithrombotics/antiplatelets; K44.9 Diaphragmatic hernia without obstruction or gangrene; Z87.19 Personal history of other diseases of the digestive system; Z86.73 Personal history of transient ischemic attack (TIA), and cerebral infarction without residual deficits; K26.9 Duodenal ulcer, unspecified as acute or chronic, without hemorrhage or perforation
CPT/HCPCS: J2250; J3010; J7030

== ENCOUNTER → 2021-04-26 | Outpatient (CLI) | payer MEDICARE, OTHER ==
[~2021-04-26] VITALS: Ht 172.7 cm; Wt 77.1 kg
[~2021-04-26] MED LIST changes: +COLACE 100100 MG/CAP PO; +CVS SPECTRAVIT1 EA15 PO; +FERRO-TIME325 MG PO; +GLUCOPHAGE XR500 M1 PO; +IRON TABLETS325 MG PO; +KLOR-CON20 MEQ PO; +NORVASC2.5 MG PO; +PRILOSEC 20MG20 MG PO; +PRINIVIL10 MG PO; +PRINIVIL40 MG PO; +PROTONIX 40MG T40 MG PO; +ZOLOFT 50MG50 MG PO
[2021-04-26 11:29] VITALS: BP 180/80; PULSE 83; TEMP 98.4
[2021-04-26 12:40] VITALS: BP 173/93; PULSE 85
[2021-04-26 13:04] LABS: PLEURAL FLUID RBC 5000 /mm3 (0-0); PLEURAL FLUID WBC 12317 /mm3
[2021-04-26 13:09] LABS: PLEURAL FLUID APPEARANCE HAZY; PLEURAL FLUID COLOR YELLOW
== END ==
LOC: COL.RAD 10:49
PROVIDERS: Internal Medicine
DX: C43.21 Malignant melanoma of right ear and external auricular canal (principal); J90 Pleural effusion, not elsewhere classified
CPT/HCPCS: 19804

== ENCOUNTER 2021-05-17 02:00 | Inpatient (IN) | payer MEDICARE, OTHER ==
[~2021-05-17] VITALS: Ht 172.7 cm; Wt 78.6 kg
--- NOTE | 2021-05-17 03:10 | NUR ---
PATIENT ARRIVED TO ROOM 327 AT 0230 THIS MORNING. PATIENT ALERT AND ORIENTED X'S 4, DENIES CHEST PAIN AT THIS TIME, AND IS ABLE TO MAKE NEEDS KNOWN. PATIENT IS ON 3L NC AND DOES GET SHORT OF WHILE TALKING. NO REQUESTS OR CONCERNS VERBALIZED BY PATIENT AT THIS TIME. DR. GALVAIZ NOTIFIED OF PATIENTS ARRIVAL.
[2021-05-17 03:58] VITALS: BP 129/67; PULSE 95; TEMP 98.1
[2021-05-17 03:58] LABS: ARTERIAL BLOOD GAS BASE EXCESS -5.8 (-2-2); ARTERIAL BLOOD GAS HCO3 18.1 meq/L (22-26); ARTERIAL BLOOD GAS PCO2 30.6 mmHg (35-45); ARTERIAL BLOOD GAS PO2 74.7 mmHg (80-100); ARTERIAL BLOOD GAS pH 7.39 (7.35-7.45)
[2021-05-17 07:14] VITALS: BP 148/67; PULSE 86; TEMP 97.7
--- NOTE | 2021-05-17 10:02 | NUR ---
REBECCA met with the patient to discuss discharge plan. The patient states that he has difficulties speaking. He states that his will arrive soon to talk. The patient's then arrived. REBECCA met with the patient and his , Dolores (ph#[phone]), to discuss discharge plan. The patient lives in [place] with his . Dolores reports that the patient is independent with ADLs and has a cane, walker, and home oxygen from [facility]. The patient receives primary care and his medications at [facility]. Dolores states that the patient last saw Dr. Chao at [place]. The patient's DPOA-HC is in EMR and it designates his . Dolores reports that the plan is for the patient to return back home with her upon discharge. REBECCA discussed home health services. Dolores states that the patient had it in the past, but home health did not do much for them. They were not interested in home health at this time. SW to continue to monitor. *Discharge plan: home with *
[2021-05-17 11:14] VITALS: BP 171/85; PULSE 93; TEMP 97.5
--- NOTE | 2021-05-17 13:54 | NUR ---
PULLeón. DR. MATA IN ROOM PERFORMING THORACENTESIS ON PATIENT. PATIENT TOLERTAING WELL. CLEARISH YELLOW FLUID BEING REMOVED FROM LEFT LUNG WHEN RN LEFT ROOM.
[2021-05-17 15:14] VITALS: BP 162/74; PULSE 91; TEMP 97.4
[2021-05-17 16:27] LABS: PLEURAL FLUID RBC 10000 /mm3 (0-0); PLEURAL FLUID WBC 5759 /mm3
[2021-05-17 16:31] LABS: PLEURAL FLUID APPEARANCE HAZY; PLEURAL FLUID COLOR YELLOW
[2021-05-17 20:34] VITALS: BP 122/60; PULSE 104; TEMP 98.1
--- NOTE | 2021-05-17 23:01 | NUR ---
PATIENT DOING WELL TONIGHT. ALERT AND ORIENTED. STATES HE HAS PAIN IN HIS L SIDE THAT COMES AND GOES BUT DOES NOT NEED ANYTHING FOR IT. HS MEDICATIONS GIVEN. BANDAID TO L THORACENTESIS SITE IS CDI. TELE REPORTING SR. INT L AC PATENT AND FLUSHES EASILY. CURRENTLY ON 3 L O2 VIA NC. DENIES ANY OTHER NEEDS. RESTING COMFORTABLY IN BED. CALL LIGHT IN REACH.
[2021-05-18 00:43] VITALS: BP 120/48; PULSE 88; TEMP 97.7
[2021-05-18 04:16] VITALS: BP 148/67; PULSE 83; TEMP 98
[2021-05-18 06:49] LABS: BASO % 0.3 % (0.0-2.0); EOS # 0.2 K/mm3 (0.0-0.7); EOS % 1.7 % (0.0-4.0); GRAN # 8.9 K/mm3 (1.4-6.5); GRAN % 77.9 % (42.2-75.2); HEMOGLOBIN 10.6 g/dl (13.5-18.0); LYMPH # 1.3 K/mm3 (1.2-3.4); LYMPH % 11.5 % (20.0-51.0); MEAN CELL VOLUME 91 fl (80.0-100.0); MEAN CORPUSCULAR HEMOGLOBIN 30 pg (27-31); MEAN CORPUSCULAR HGB CONC 33 g/dl (33.0-37.0); MEAN PLATELET VOLUME 11.1 fl (7.4-10.4); MONO # 0.9 K/mm3 (0.1-0.6); MONO % 8.2 % (1.7-9.3); PLATELET COUNT 75 K/mm3 (130-400); RED BLOOD COUNT 3.52 M/mm3 (4.20-5.60); REDCELL DISTRIBUTION WIDTH-CV 13.6 % (11.5-14.5)
[2021-05-18 07:00] LABS: CALCIUM 7.9 mg/dL (8.4-10.2); CREATININE, serum 1.95 mg/dL (0.72-1.25); POTASSIUM 3.9 mmol/L (3.5-4.5)
[2021-05-18 07:14] LABS: HEMATOCRIT 32.1 % (42.0-52.0)
[2021-05-18 07:42] VITALS: BP 162/76; PULSE 87; TEMP 97.2
[2021-05-18 11:59] VITALS: BP 148/76; PULSE 88; TEMP 97.6
--- NOTE | 2021-05-18 13:22 | NUR ---
Initial visit; Patient thanked Skimmer Scoop Operator for looking in on him and offering God's blessings and to keep him in Skimmer Scoop Operator's prayers.
[2021-05-18 15:27] VITALS: BP 175/88; PULSE 80; TEMP 97.6
--- NOTE | 2021-05-18 19:45 | NUR ---
STARTED #22 INSYTE TO RFA ON SECOND ATTEMPT. IV ANTIBIOTIC CONNECTED AND INFUSING WITHOUT PROBLEM.
[2021-05-18 20:05] VITALS: BP 169/82; PULSE 97; TEMP 97.4
--- NOTE | 2021-05-18 21:30 | NUR ---
PT IN BED. ANTIBIOTIC COMPLETE. TAKES HS MEDS WITHOUT PROBLEM. HISTORY OF CVA WITH MINIMAL RT SIDE WEAKNESS. HAS INT TO RFA. VOIDING IN BATHROOM WITHOUT PROBLEM. HAS BANDAID TO LEFT BACK FROM PREVIOUS THORACENTESIS. WEARING OXYGEN AT 3L/NC.
[2021-05-19] VITALS: BP 153/77; PULSE 90; TEMP 97.7
[2021-05-19 04:00] VITALS: BP 181/97; PULSE 89; TEMP 97.7
--- NOTE | 2021-05-19 04:10 | NUR ---
IV ANTIBIOTICS GIVEN, INFUSING WITHOUT PROBLEM. PT DENIES NEEDS.
[2021-05-19 04:12] VITALS: BP 160/90
--- NOTE | 2021-05-19 04:13 | NUR ---
B/P RECHECK WITH MANUAL CUFF, 160/90.
[2021-05-19 07:21] VITALS: BP 187/82; PULSE 86; TEMP 97.5
--- NOTE | 2021-05-19 07:42 | NUR ---
PT UP TO BR WITH SBA VOIDED AND RETURNED TO BED WITH SBA X1. GAIT UNSTEADY AND PT APPEARS IMPULSIVE. FALL RISK PRECAUTIONS IMPLEMENTED. PT ON BASELINE O2 @ 2L PNC. VSS.
[2021-05-19 11:12] VITALS: BP 164/68; PULSE 90; TEMP 97.9
[2021-05-19 12:18] LABS: CALCIUM 8.3 mg/dL (8.4-10.2); CREATININE, serum 1.66 mg/dL (0.72-1.25); POTASSIUM 4.1 mmol/L (3.5-4.5)
[2021-05-19 12:19] LABS: ANA SCREEN with REFLEX Negative (Negative)
[2021-05-19] MEDS ORDERED: DOXYCYCLINE 10100 MG PO (14:01)
[2021-05-19] MEDS ORDERED: PREDNISONE10 MG PO (14:01)
--- NOTE | 2021-05-19 15:17 | NUR ---
DISCHARGE INSTRUCTIONS REVIEWED WITH PT AND . QUESTIONS SOLICITED AND ANSWERED. PT LEFT UNIT IN WHEEL CHAIR WITH STAFF ASSISTING.
[2021-05-21 14:01] LABS: A/G RATIO (PEP) 0.45 (()); BETA GLOBULINS (PEP) 0.9 g/dL (0.7-1.2)
== END 2021-05-19 14:50 | disposition home or self-care (01) | DRG 187 ==
LOC: MEDICAL 02:00 → SURG 02:25
PROVIDERS: Internal Medicine Sleep Medicine; Physician Assistant
PROC: 0W9B3ZZ Drainage of Left Pleural Cavity, Percutaneous Approach (ICD-10-PCS; principal; 2021-05-17)
DX: J90 Pleural effusion, not elsewhere classified (principal); J96.11 Chronic respiratory failure with hypoxia; J44.9 Chronic obstructive pulmonary disease, unspecified; E78.5 Hyperlipidemia, unspecified; F32.A Depression, unspecified; E61.1 Iron deficiency; N18.30 Chronic kidney disease, stage 3 unspecified; Z99.81 Dependence on supplemental oxygen; Z86.73 Personal history of transient ischemic attack (TIA), and cerebral infarction without residual deficits; Z87.891 Personal history of nicotine dependence; Z79.02 Long term (current) use of antithrombotics/antiplatelets; Z85.820 Personal history of malignant melanoma of skin; Z23 Encounter for immunization
CPT/HCPCS: 99223-AI; 99232-AI; 99233-AI; 99239; J0696; J1650; J7512

== ENCOUNTER 2021-07-02 10:44 | Inpatient (IN) | payer MEDICARE, OTHER ==
[~2021-07-02] VITALS: Ht 172.7 cm; Wt 77.5 kg
[~2021-07-02 10:44] MED LIST changes: +DOXYCYCLINE 10100 MG PO; +PREDNISONE10 MG PO
[2021-07-02 11:14] LABS: BASO % 0.4 % (0.0-2.0); EOS # 0.2 K/mm3 (0.0-0.7); GRAN # 8.2 K/mm3 (1.4-6.5); GRAN % 76.8 % (42.2-75.2); LYMPH # 1.1 K/mm3 (1.2-3.4); MEAN CELL VOLUME 89 fl (80.0-100.0); MEAN CORPUSCULAR HEMOGLOBIN 30 pg (27-31); MEAN CORPUSCULAR HGB CONC 33 g/dl (33.0-37.0); MEAN PLATELET VOLUME 9.6 fl (7.4-10.4); MONO # 1.1 K/mm3 (0.1-0.6); MONO % 10.2 % (1.7-9.3); PLATELET COUNT 293 K/mm3 (130-400); REDCELL DISTRIBUTION WIDTH-CV 13.6 % (11.5-14.5)
[2021-07-02 11:33] LABS: BILIRUBIN,TOTAL 0.6 mg/dL (0.2-1.2); CALCIUM 8.6 mg/dL (8.4-10.2); CREATININE, serum 1.86 mg/dL (0.72-1.25); POTASSIUM 4.4 mmol/L (3.5-4.5); TOTAL PROTEIN 6.7 gm/dL (6.2-8.1)
[2021-07-02 11:39] LABS: TROPONIN-I 0.019 ng/mL (0.00-0.033)
[2021-07-02 12:04] LABS: ARTERIAL BLD GAS O2 SATURATION 94.6 % (92-100); ARTERIAL BLD GAS TCO2 CT 24.6; ARTERIAL BLOOD GAS BASE EXCESS 0.1 (-2-2); ARTERIAL BLOOD GAS HCO3 23.6 meq/L (22-26); ARTERIAL BLOOD GAS PCO2 34.3 mmHg (35-45); ARTERIAL BLOOD GAS PO2 71.6 mmHg (80-100); ARTERIAL BLOOD GAS pH 7.46 (7.35-7.45)
[2021-07-02 13:00] VITALS: BP 149/72; PULSE 88; TEMP 98.5
[2021-07-02 17:41] VITALS: BP 170/72; PULSE 99; TEMP 98.1
--- NOTE | 2021-07-02 19:14 | NUR ---
Tx given via mask, tolerated well. Perforomist and Pulmicort, followed by Duoneb. Pt maintained 2L NC before after and during tx.
[2021-07-02 20:30] VITALS: BP 152/77; PULSE 89; TEMP 97.9
--- NOTE | 2021-07-02 22:25 | NUR ---
ALERT ANDOX4. DELAY IN SPEECH FROM OLD CVA. 2L N/C. DENIES SOA WHEN IN BED, SOA HOWEVER W AMBULATION. POC DISCUSSED. LFA FLUSED. SCD ON FOR VTE. DENIES PAIN. SEIZURE PRECUATION, BED IN LOW POSITION.
[2021-07-02 23:44] VITALS: BP 109/39; PULSE 101; TEMP 100.6
[2021-07-03 04:12] VITALS: BP 118/47; PULSE 64; TEMP 98.6
--- NOTE | 2021-07-03 05:45 | NUR ---
RESTED THOUGH THE NIGHT WITHOUT INCIDENT. NEEDS MET.
--- NOTE | 2021-07-03 06:30 | NUR ---
THE PATIENT IS LAYING IN BED ASLEEP UNTIL THIS RN ENTERED THE ROOM. THE PATIENT REQUESTED BREAKFAST BE ORDERED FOR HIM. THIS RN TOOK HIS ORDER AND CALLED DINING SERVICES FOR BREAKFAST. THE PATIENT ALSO REQUESTED TO GO TO THE BATHROOM. THIS RN ASSISTED PATIENT, PT IS A STAND BY ASSIST AND IS STRONG WITH HIS GAIT. THE PATIENT DOES NOT NEED WALKER/CANE INDOORS, BUT STATES HE DOES UTILIZE A CANE OUTDOORS. PT CAME OFF O2 TO WALK TO THE BATHROOM. WAS 93% ON 2L NC AFTER AMBULATION TO RESTROOM. NO OTHER CONERNS AT THIS TIME.
[2021-07-03 07:01] LABS: BASO % 0.4 % (0.0-2.0); EOS # 0.2 K/mm3 (0.0-0.7); GRAN # 8.6 K/mm3 (1.4-6.5); GRAN % 79.2 % (42.2-75.2); HEMOGLOBIN 10.6 g/dl (13.5-18.0); LYMPH # 0.9 K/mm3 (1.2-3.4); LYMPH % 7.8 % (20.0-51.0); MEAN CELL VOLUME 90 fl (80.0-100.0); MEAN CORPUSCULAR HEMOGLOBIN 30 pg (27-31); MEAN CORPUSCULAR HGB CONC 33 g/dl (33.0-37.0); MONO # 1.1 K/mm3 (0.1-0.6); PLATELET COUNT 249 K/mm3 (130-400); RED BLOOD COUNT 3.56 M/mm3 (4.20-5.60); REDCELL DISTRIBUTION WIDTH-CV 13.8 % (11.5-14.5)
[2021-07-03 07:08] LABS: HEMATOCRIT 32.1 % (42.0-52.0)
[2021-07-03 07:16] LABS: CALCIUM 8.2 mg/dL (8.4-10.2); CREATININE, serum 1.72 mg/dL (0.72-1.25); POTASSIUM 3.9 mmol/L (3.5-4.5)
[2021-07-03 07:28] LABS: TROPONIN-I 0.019 ng/mL (0.00-0.033)
[2021-07-03 07:59] VITALS: BP 136/67; PULSE 89; TEMP 97.8
--- NOTE | 2021-07-03 09:12 | NUR ---
PT RECEIVED BREAKFAST. WILL NEED ASSISTANCE FROM NURSING STAFF OR DIETARY IN ROOM FOR FOOD ORDERS D/T HIS EXTREME HARD OF HEARING. NO OTHER CONCERNS AT THIS TIME.
[2021-07-03 11:42] VITALS: BP 130/59; PULSE 94; TEMP 98.1
[2021-07-03 16:17] VITALS: BP 143/62; PULSE 90; TEMP 97.8
--- NOTE | 2021-07-03 16:29 | NUR ---
Screen Cleaner met with patientRemigio, for intake assessment/discharge planning, noting his spouse Dolores ([phone]) arrives to bedside during assessment. Patient does present with some shortness of breath and he requests his spouse Dolores present as she has more information than he can provide: Patient informs he and his spouse of 50 years live in a home that has a number of stairs to the basement; he does not need to utilize the basement though does like to go up and down as he is able. He states there are dual-handrails at the stairs. He informs he uses a cane to ambulate, and he has two walkers at home that he does not use. He does normally utilize 2 liters of oxygen. He states he is largely independent, and he wants to remain as independent as possible, denying any need for assistance with his ADLs and IADLs. He has primary care at [place], and he obtains his medications there as well, stating he has no problems affording and/or otherwise obtaining his medications. As his spouse arrives, she confirms information reported and she states patient had a stroke in 2019 and was treated at [facility] then transferred to [facility] where he recovered until he could return to home. He has had a home health nurse check-in with him through [facility]; the main office was in [place]. Patient and spouse both deny any need for in-home and/or rehabilitation services at discharge at this time. Patient informs he already has DPOA-HC paperwork on file appointing his spouse Dolores as his DPOA-HC; spouse confirms. Social Work will continue to follow. *Discharge plan to home pending recommendation for HH vs. SNF/Rehab*
[2021-07-03 19:54] VITALS: BP 134/74; PULSE 91; TEMP 98.6
--- NOTE | 2021-07-03 20:13 | NUR ---
TX GIVEN VIA MASK, TOLERATED WELL.
[2021-07-03 23:09] VITALS: BP 171/74; PULSE 103; TEMP 99.7
[2021-07-04] VITALS (11 sets, daily range): BP systolic 16–154; BP diastolic 56–72; PULSE 86–115; TEMP 97.5–100.7
[2021-07-04 06:41] LABS: BASO % 0.2 % (0.0-2.0); EOS # 0.2 K/mm3 (0.0-0.7); GRAN # 13.4 K/mm3 (1.4-6.5); GRAN % 86.5 % (42.2-75.2); HEMOGLOBIN 10.8 g/dl (13.5-18.0); LYMPH # 0.5 K/mm3 (1.2-3.4); LYMPH % 3.3 % (20.0-51.0); MEAN CELL VOLUME 89 fl (80.0-100.0); MEAN CORPUSCULAR HEMOGLOBIN 30 pg (27-31); MEAN CORPUSCULAR HGB CONC 33 g/dl (33.0-37.0); MEAN PLATELET VOLUME 10.2 fl (7.4-10.4); MONO # 1.3 K/mm3 (0.1-0.6); MONO % 8.5 % (1.7-9.3); PLATELET COUNT 283 K/mm3 (130-400); RED BLOOD COUNT 3.65 M/mm3 (4.20-5.60); REDCELL DISTRIBUTION WIDTH-CV 13.7 % (11.5-14.5)
[2021-07-04 06:42] LABS: HEMATOCRIT 32.3 % (42.0-52.0)
[2021-07-04 06:53] LABS: INR 1.2 (0.8-3.0)
[2021-07-04 07:09] LABS: CALCIUM 8.1 mg/dL (8.4-10.2); CREATININE, serum 1.58 mg/dL (0.72-1.25)
--- NOTE | 2021-07-04 08:00 | NUR ---
Patient standing at the sink washing hands. Independent in the room. A&Ox4. VSS. IV CDI. Denies pain and discomfort. Call light within reach
--- NOTE | 2021-07-04 08:36 | NUR ---
ASSESSMENT COMPLETE FOR THIS SHIFT. PT RESTING IN BED NAPPING. PT DENIED PAIN, PALPITATIONS, N,V,D OR DIZZINESS. PT HAD SOME SOB AT REST AND WITH AMBULATION. PT ALSO HAVE A LOW GRADE FEVER AND B/P OF 171/74 CLOSE TO MIDNIGHT. HOSPITALIST CALLED. APRESOLINE ORDERED AND GIVEN. TYLENOL GIVEN FOR FEVER. BOTH MEDICATIONS WERE EFFECTIVE. AROUND 0200HRS THIS MORNING PT HAD A EPISODE WHERE HE WAS BREATHING HARDER THEN NORMAL, SWEATING AND TEARS WERE IN HIS EYE. PT ASKED IF HE WAS OK. HARD TO UNDERSTAND WHAT HE WAS SAYING. VS AND BS TAKEN. BS A BIT ELEVATED. HR ALSO ELEVATED. PT SAT ON THE SIDE OF THE BED FOR AWHILE; ASKED TO GO TO THE RESTROOM; PASSED A LOT OF GAS, HAD WHAT SOUNDED LIKE A BOWEL MOVEMENT AND STATED HE FELT A LOT BETTER. PT EXPRESSED NO OTHER NEEDS AT THIS TIME. CALL LIGHT WITHIN REACH
--- NOTE | 2021-07-04 08:49 | NUR ---
RT TX REFUSED
[2021-07-04 11:13] LABS: PLEURAL FLUID APPEARANCE HAZY; PLEURAL FLUID COLOR YELLOW
[2021-07-04 11:14] LABS: PLEURAL FLUID RBC 3000 /mm3 (0-0); PLEURAL FLUID WBC 7983 /mm3
--- NOTE | 2021-07-04 15:59 | NUR ---
PT AWAKE BUT RESTING QUIETLY IN BED WITH EYES CLOSED. PT DENIES PAIN OR NEEDS @ THIS TIME. OXYGEN ON VIA NC, RESPIRATIONS UNLABORED. CALL LIGHT WITHIN REACH.
[2021-07-05 02:10] LABS: COLLECTION METHOD CLEAN CATCH
[2021-07-05 02:19] LABS: MUCOUS Present (NOT PRESENT); PH 5 (5-8); SQUAMOUS EPITHELIAL None Seen /hpf (0-10); URINE APPEARANCE Hazy (CLEAR/HAZY); URINE BACTERIA Rare /hpf (NONE SEEN); URINE BILIRUBIN Negative (NEGATIVE); URINE BLOOD Negative (NEGATIVE); URINE COLOR Yellow (YELLOW); URINE GLUCOSE Negative (NEGATIVE); URINE KETONE Trace (NEGATIVE); URINE LEUKOCYTE ESTERASE Negative (NEGATIVE); URINE NITRATE Negative (NEGATIVE); URINE PROTEIN(semi-quant) 2+ (NEGATIVE); URINE UROBILINOGEN Negative (NEGATIVE)
[2021-07-05 04:17] VITALS: BP 116/55; PULSE 95; TEMP 97.6
--- NOTE | 2021-07-05 05:58 | NUR ---
ASSESSMENT COMPLETE FOR THIS SHIFT. PT RESTING IN BED WATCHING TV. PT DENIED PAIN, PALPITATIONS, N,V,D OR DIZZINESS. PT CONTINUES WITH SOB AT REST AND WITH AMBULATIONS THIS SHIFT. PT COMPLAINED OF ACID REFLUX AND FEELING LIKE HE WAS GOING TO THROW-UP. HOSPITALIST CALLED. IV PEPCID AND ZOFRAN ORDERED AND GIVEN. BOTH MEDS EFFECTIVE PER PT. PT EXPRESSED NO OTHER NEEDS AT THIS TIME. CALL LIGHT WITHIN REACH.
[2021-07-05 06:12] LABS: BASO # 0.1 K/mm3 (0.0-0.2); BASO % 0.4 % (0.0-2.0); EOS # 0.4 K/mm3 (0.0-0.7); EOS % 2.6 % (0.0-4.0); GRAN # 12.9 K/mm3 (1.4-6.5); GRAN % 83.3 % (42.2-75.2); HEMOGLOBIN 10.9 g/dl (13.5-18.0); LYMPH # 0.7 K/mm3 (1.2-3.4); LYMPH % 4.5 % (20.0-51.0); MEAN CELL VOLUME 89 fl (80.0-100.0); MEAN CORPUSCULAR HEMOGLOBIN 29 pg (27-31); MEAN CORPUSCULAR HGB CONC 33 g/dl (33.0-37.0); MONO # 1.4 K/mm3 (0.1-0.6); MONO % 8.8 % (1.7-9.3); PLATELET COUNT 276 K/mm3 (130-400); RED BLOOD COUNT 3.71 M/mm3 (4.20-5.60); REDCELL DISTRIBUTION WIDTH-CV 13.7 % (11.5-14.5)
[2021-07-05 06:16] LABS: HEMATOCRIT 33.1 % (42.0-52.0)
[2021-07-05 06:21] LABS: CALCIUM 7.9 mg/dL (8.4-10.2); CREATININE, serum 1.7 mg/dL (0.72-1.25); POTASSIUM 4.4 mmol/L (3.5-4.5)
[2021-07-05 08:27] VITALS: BP 110/51; PULSE 107; TEMP 98.1
--- NOTE | 2021-07-05 10:10 | NUR ---
Pt assessment complete. Pt is laying in bed upon entry, he is hard of hearing but A/O x4. His breathing is even and unlabored on 3L O2 via NC. Pt denies SOB. Denies pain at this time. Discussed POC with patient who verbalizes understanding. IV moved to [facility] d/t leaking. No needs at this time. Call light within reach.
[2021-07-05 11:19] VITALS: BP 124/52; PULSE 92; TEMP 98.4
[2021-07-05 16:18] VITALS: BP 136/63; PULSE 97; TEMP 98.3
[2021-07-05 19:50] VITALS: BP 135/59; PULSE 96; TEMP 97.7
--- NOTE | 2021-07-05 22:35 | NUR ---
AAO PATIENT DOES WEAR HEARING AID CHARGING AT THIS TIME. CONTINUE ON ABX THERAPY NO S/S OF SOB OR DISTRESS. LEFT LOWER LOBE MORE DIMINISHED THAN RIGHT SIDE. ENCOURAGED PATIENT TO PERFORM DEEP BREATHING EXERCISES AND EDCUATED PATIENT SITTING OF FOR ALL MEALS TO EAT TO PROMOTE ADEQUATE GAS EXCHANGE. PATIENT DID WORK WITH THERAPY AND STATED HE USED 02 AND WALKER WHIC HE TOLERATED FAIRLY WELL. 800CC REMOVED YESTERDAY TO LEFT SIDE OF LUNG DRESSING INTACT NO DRAINAGE NOTED FROM THORACENTESIS. WILL CONTINUE TO MONITOR CALL LIGHT WITHIN REACH.
[2021-07-05 23:02] VITALS: BP 124/50; PULSE 90; TEMP 97.8
[2021-07-06 04:02] VITALS: BP 130/62; PULSE 79; TEMP 97.7
--- NOTE | 2021-07-06 05:44 | NUR ---
PATIENT SLEPT THROUGHOUT THE NIGHT NO PAIN NOTED CONTINUES WITH IV ABX TOLERATING WELL WILL CONTINUE TO MONITOR FOR ANY CHANGES.
[2021-07-06 06:03] LABS: BASO % 0.2 % (0.0-2.0); EOS % 0.1 % (0.0-4.0); GRAN # 16.9 K/mm3 (1.4-6.5); GRAN % 88.7 % (42.2-75.2); HEMOGLOBIN 10.3 g/dl (13.5-18.0); LYMPH # 0.8 K/mm3 (1.2-3.4); LYMPH % 4.4 % (20.0-51.0); MEAN CELL VOLUME 90 fl (80.0-100.0); MEAN CORPUSCULAR HEMOGLOBIN 30 pg (27-31); MEAN CORPUSCULAR HGB CONC 33 g/dl (33.0-37.0); MEAN PLATELET VOLUME 9.8 fl (7.4-10.4); MONO # 1.1 K/mm3 (0.1-0.6); MONO % 5.9 % (1.7-9.3); PLATELET COUNT 265 K/mm3 (130-400); RED BLOOD COUNT 3.47 M/mm3 (4.20-5.60); REDCELL DISTRIBUTION WIDTH-CV 13.6 % (11.5-14.5)
[2021-07-06 06:07] LABS: HEMATOCRIT 31.2 % (42.0-52.0)
[2021-07-06 06:23] LABS: CALCIUM 8.1 mg/dL (8.4-10.2); CREATININE, serum 1.79 mg/dL (0.72-1.25); POTASSIUM 4.2 mmol/L (3.5-4.5)
--- NOTE | 2021-07-06 06:45 | NUR ---
Report recieved, assumed care for day shift.
[2021-07-06 07:53] VITALS: BP 110/59; PULSE 95; TEMP 98.2
--- NOTE | 2021-07-06 08:30 | NUR ---
Assessment complete. A&Ox3. Denies nausea. Short of breath with activity. Rating pain 2/10 on pain scale to lower back-lidocaine patch applied. VS have remained stable. O2@3L/NC. Tele reports SR. Noted to have coarse crackles bilat all mai. INT to right right [id number] without difficulty. Plan of care discussed for this shift to include meds/continued O2/calling for questions/concerns. Verbalizes undrstanding. Call light in reach. Will monitor.
[2021-07-06 10:57] VITALS: BP 139/63; PULSE 88; TEMP 97.7
--- NOTE | 2021-07-06 13:39 | NUR ---
Ambulating in hallway, tolerating well.
--- NOTE | 2021-07-06 13:50 | NUR ---
22g INT to right forearm will not flush. DCd at this time-no s/s of redness/swelling. Restarted in upper right [id number] attempt. Tolerated well.
--- NOTE | 2021-07-06 15:18 | NUR ---
Mixed Signal Design Engineer met with patient to review discharge plan. Patient still plans to return home at time of discharge. Patient may discharge as early as tomorrow so SW presented and reviewed IM form. Patient verbalized understanding and provided signature. SW placed form in chart and provided copy to patient.
[2021-07-06 16:05] VITALS: BP 146/65; PULSE 90; TEMP 97.8
--- NOTE | 2021-07-06 16:51 | NUR ---
Patient had an uneventful day. Denied nausea. Lower back pain rating 2/10 on pain scale but denied need for intervention. O2@2L/NC with adequate oxygenation. Ambulated well in the hallways several times without issues. Right forearm 22g flushes well. Denies current questions/concerns. Call light in reach. Will monitor.
[2021-07-06 20:19] VITALS: BP 174/71; PULSE 98; TEMP 97.7
--- NOTE | 2021-07-06 22:24 | NUR ---
AAO PATIENT TITRATED ON DAY SHIFT DOWN TO 1L VIA NC PATIENT USING CANE AND AMBULATING IN ROOM DOES HAVE SOME SOA WITH EXERTION. NO C/O PAIN NOTED. CONTINUES ON ABX THERAPY. PATIENT DID STATE THAT HE WAS ABLE TO WORK WITH THERAPY TODAY 3X, TOLERATED WELL. WILL CONTINE TO MONITOR FOR ANY CHANGES THROUGHOUT SHIFT.
[2021-07-06 23:57] VITALS: BP 134/65; PULSE 81; TEMP 98
[2021-07-07 03:23] VITALS: BP 148/66; PULSE 79; TEMP 98
--- NOTE | 2021-07-07 05:46 | NUR ---
AAO PATIENT ABLE TO MAKE NEEDS KNOWN, PATIENT SLEPT THROUGHOUT THE NIGHT. PATIENT TO CONTINUE WITH PT AND ABX THERAPY WILL CONTINUE TO MONITOR PATIENT MAINTAINING 02SAT ABOVE 90% ON 2L WHILE SLEEPING.
[2021-07-07 06:10] LABS: BASO # 0.1 K/mm3 (0.0-0.2); BASO % 0.3 % (0.0-2.0); EOS # 0.1 K/mm3 (0.0-0.7); EOS % 0.4 % (0.0-4.0); GRAN # 14.9 K/mm3 (1.4-6.5); GRAN % 84.4 % (42.2-75.2); HEMOGLOBIN 10.3 g/dl (13.5-18.0); LYMPH # 1.3 K/mm3 (1.2-3.4); LYMPH % 7.3 % (20.0-51.0); MEAN CELL VOLUME 90 fl (80.0-100.0); MEAN CORPUSCULAR HEMOGLOBIN 29 pg (27-31); MEAN CORPUSCULAR HGB CONC 33 g/dl (33.0-37.0); MEAN PLATELET VOLUME 9.8 fl (7.4-10.4); MONO # 1.2 K/mm3 (0.1-0.6); MONO % 6.8 % (1.7-9.3); PLATELET COUNT 299 K/mm3 (130-400); REDCELL DISTRIBUTION WIDTH-CV 13.8 % (11.5-14.5)
[2021-07-07 06:15] LABS: HEMATOCRIT 31.6 % (42.0-52.0)
[2021-07-07 06:36] LABS: CALCIUM 7.9 mg/dL (8.4-10.2); CREATININE, serum 1.58 mg/dL (0.72-1.25); POTASSIUM 4.2 mmol/L (3.5-4.5)
--- NOTE | 2021-07-07 07:00 | NUR ---
PT IS SLEEPING AT THIS TIME. NO OTHER CONCERNS.
[2021-07-07 08:00] VITALS: BP 157/74; PULSE 101; TEMP 97.9
--- NOTE | 2021-07-07 09:40 | NUR ---
Patient is sitting in bed with television on, call light in reach.
[2021-07-07] MEDS ORDERED: OMNICEF 300MG300 MG PO (09:55)
[2021-07-07] MEDS ORDERED: DOXYCYCLINE 10100 MG PO (09:55)
[2021-07-07] MEDS ORDERED: PREDNISONE10 MG PO (10:00)
--- NOTE | 2021-07-07 11:55 | NUR ---
Brewery Cellar Worker met with patient who is discharging home today. Patient confirmed he has home oxygen set up through [facility] and has his portable here with him.
[2021-07-09 10:17] LABS: BODY FLUID PH (AMS) >7.50
== END 2021-07-07 11:00 | disposition home or self-care (01) | DRG 193 ==
LOC: COL.ER 10:44 → MEDICAL 11:45
PROVIDERS: Family Medicine; Internal Medicine Pulmonary Disease; Nurse Practitioner Primary Care; Physician Assistant; ADMIT Student in an Organized Health Care Education/Training Program
PROC: 0W9B3ZZ Drainage of Left Pleural Cavity, Percutaneous Approach (ICD-10-PCS; principal; 2021-07-04)
DX: J18.9 Pneumonia, unspecified organism (principal); J96.21 Acute and chronic respiratory failure with hypoxia; J44.1 Chronic obstructive pulmonary disease with (acute) exacerbation; J90 Pleural effusion, not elsewhere classified; J44.0 Chronic obstructive pulmonary disease with (acute) lower respiratory infection; E78.5 Hyperlipidemia, unspecified; M19.90 Unspecified osteoarthritis, unspecified site; F32.A Depression, unspecified; I12.9 Hypertensive chronic kidney disease with stage 1 through stage 4 chronic kidney disease, or unspecified chronic kidney disease; N18.30 Chronic kidney disease, stage 3 unspecified; I73.9 Peripheral vascular disease, unspecified; D64.9 Anemia, unspecified; G40.909 Epilepsy, unspecified, not intractable, without status epilepticus; I70.0 Atherosclerosis of aorta; I34.0 Nonrheumatic mitral (valve) insufficiency; Z86.73 Personal history of transient ischemic attack (TIA), and cerebral infarction without residual deficits; Z85.820 Personal history of malignant melanoma of skin; Z87.891 Personal history of nicotine dependence; Z23 Encounter for immunization
CPT/HCPCS: 99222-AI; 99232-AI; 99233-AI; 99239; J0360; J0456; J0692; J0696; J1644; J2405; J7050; J7512

== ENCOUNTER 2021-08-13 19:40 | Emergency (ER) | payer MEDICARE, OTHER ==
[~2021-08-13] VITALS: Ht 172.7 cm; Wt 75.5 kg
[~2021-08-13 19:40] MED LIST changes: +OMNICEF 300MG300 MG PO
[2021-08-13 19:48] VITALS: TEMP 98.3
[2021-08-13 20:55] LABS: BASO # 0.1 K/mm3 (0.0-0.2); BASO % 0.3 % (0.0-2.0); EOS # 0.3 K/mm3 (0.0-0.7); EOS % 1.5 % (0.0-4.0); GRAN # 15.5 K/mm3 (1.4-6.5); GRAN % 87.2 % (42.2-75.2); HEMOGLOBIN 11.4 g/dl (13.5-18.0); LYMPH # 0.7 K/mm3 (1.2-3.4); LYMPH % 4.1 % (20.0-51.0); MEAN CELL VOLUME 89 fl (80.0-100.0); MEAN CORPUSCULAR HEMOGLOBIN 28 pg (27-31); MEAN CORPUSCULAR HGB CONC 32 g/dl (33.0-37.0); MONO # 1.1 K/mm3 (0.1-0.6); MONO % 6.2 % (1.7-9.3); PLATELET COUNT 301 K/mm3 (130-400); RED BLOOD COUNT 4.02 M/mm3 (4.20-5.60); REDCELL DISTRIBUTION WIDTH-CV 14.9 % (11.5-14.5)
[2021-08-13 21:04] LABS: HEMATOCRIT 35.6 % (42.0-52.0)
[2021-08-13 21:10] LABS: ALBUMIN 1.8 gm/dL (3.4-4.8); BILIRUBIN,TOTAL 0.4 mg/dL (0.2-1.2); CALCIUM 8.8 mg/dL (8.4-10.2); CREATININE, serum 1.46 mg/dL (0.72-1.25); POTASSIUM 4.1 mmol/L (3.5-4.5); TOTAL PROTEIN 7.3 gm/dL (6.2-8.1)
[2021-08-13 21:16] LABS: TROPONIN-I 0.013 ng/mL (0.00-0.033)
[2021-08-13 21:52] LABS: ARTERIAL BLD GAS O2 SATURATION 95.3 % (92-100); ARTERIAL BLD GAS TCO2 CT 25.9; ARTERIAL BLOOD GAS BASE EXCESS 1.1 (-2-2); ARTERIAL BLOOD GAS HCO3 24.8 meq/L (22-26); ARTERIAL BLOOD GAS PCO2 36.6 mmHg (35-45); ARTERIAL BLOOD GAS pH 7.45 (7.35-7.45)
[2021-08-13 22:04] VITALS: BP 165/91; PULSE 99
== END 2021-08-13 22:04 | disposition home or self-care (01) ==
LOC: COL.ER 19:40
PROVIDERS: Nurse Practitioner
DX: R06.00 Dyspnea, unspecified (principal); Z99.81 Dependence on supplemental oxygen; Z20.822 Contact with and (suspected) exposure to COVID-19

== ENCOUNTER 2021-08-16 06:25 | Outpatient (CLI) | payer MEDICARE, OTHER ==
[~2021-08-16] VITALS: Ht 172.8 cm; Wt 75.5 kg
[2021-08-16] MEDS ORDERED: NORVASC 5MG5 MG/TAB PO (07:12)
[2021-08-16 07:30] VITALS: BP 132/86; PULSE 97; TEMP 98.3
[2021-08-16 08:37] VITALS: BP 140/74; PULSE 95; TEMP 97.8
[2021-08-16 08:45] VITALS: BP 142/74; PULSE 93
[2021-08-16 09:00] VITALS: BP 135/71; PULSE 94
[2021-08-16 09:15] VITALS: BP 139/73; PULSE 88
[2021-08-16] MEDS ORDERED: DOXYCYCLINE 10100 MG PO (09:48)
--- NOTE | 2021-08-16 10:20 | NUR ---
0837 Pt returns from Endo procedure via wheelchair. Monitors on and alarms set. Pt alert and oriented. Pt's in room. Pt requests water only. 0845 Pt taking water well and voices no complications. 0905 Radiology here for post-op chest x-ray. 1000 Discharge information given to pt and pt's . All questions answered to their satisfaction. Handed to them are a thank you card and discharge inforomation. 1025 Pt transferred out of hospital via wheelchair and this RN assist to private vehicle driven by pt's .
[2021-08-16 10:32] LABS: PLEURAL FLUID RBC 3000 /mm3 (0-0); PLEURAL FLUID WBC 4753 /mm3
[2021-08-16 10:43] LABS: PLEURAL FLUID APPEARANCE CLOUDY; PLEURAL FLUID COLOR YELLOW
[2021-08-16 17:29] VITALS: BP 126/74; PULSE 92
[2021-08-17 00:19] LABS: BODY FLUID PH (AMS) 8 (())
== END 2021-08-16 10:25 | disposition home or self-care (01) ==
LOC: COL.AMSURD 06:25
PROVIDERS: Internal Medicine Pulmonary Disease
DX: J90 Pleural effusion, not elsewhere classified (principal); J44.9 Chronic obstructive pulmonary disease, unspecified
CPT/HCPCS: 19804

== ENCOUNTER 2021-09-01 14:41 | Inpatient (IN) | payer MEDICARE, OTHER ==
[~2021-09-01] VITALS: Ht 172.7 cm; Wt 68.4 kg
[~2021-09-01 14:41] MED LIST changes: +NORVASC 5MG5 MG/TAB PO
[2021-09-01 14:55] VITALS: BP 158/89; PULSE 106; TEMP 97.6
--- NOTE | 2021-09-01 15:00 | NUR ---
PT WAS A DIRECT ADMIT FROM 'S OFFICE. PT ORIENTED TO ROOM AND FLOOR. IS BEDSIDE. PT IS AXOX4. VSS. PT IS ON 3L NC WHICH HE WEARS AT HOME. NOTIFIED OF ARRIVAL.
[2021-09-01 16:12] LABS: BASO % 0.3 % (0.0-2.0); EOS # 0.5 K/mm3 (0.0-0.7); EOS % 3.8 % (0.0-4.0); GRAN # 9.8 K/mm3 (1.4-6.5); GRAN % 81.7 % (42.2-75.2); HEMOGLOBIN 11.3 g/dl (13.5-18.0); LYMPH # 0.9 K/mm3 (1.2-3.4); LYMPH % 7.7 % (20.0-51.0); MEAN CELL VOLUME 88 fl (80.0-100.0); MEAN CORPUSCULAR HEMOGLOBIN 29 pg (27-31); MEAN CORPUSCULAR HGB CONC 33 g/dl (33.0-37.0); MEAN PLATELET VOLUME 10.5 fl (7.4-10.4); MONO # 0.8 K/mm3 (0.1-0.6); MONO % 6.2 % (1.7-9.3); PLATELET COUNT 162 K/mm3 (130-400); RED BLOOD COUNT 3.93 M/mm3 (4.20-5.60); REDCELL DISTRIBUTION WIDTH-CV 15.9 % (11.5-14.5)
[2021-09-01 16:15] LABS: HEMATOCRIT 34.5 % (42.0-52.0); INR 1.2 (0.8-3.0); PROTHROMBIN TIME 13.2 SECONDS (9.7-12.8)
[2021-09-01 16:33] LABS: ERYTHROCYTE SEDIMENTATION RATE 112 mm/hr (0-30)
[2021-09-01 17:02] LABS: ALBUMIN 2.2 gm/dL (3.4-4.8); BILIRUBIN,TOTAL 0.4 mg/dL (0.2-1.2); C-REACTIVE PROTEIN 2.45 mg/dL (0.00-0.50); CALCIUM 8.2 mg/dL (8.4-10.2); CREATININE, serum 1.38 mg/dL (0.72-1.25); MAGNESIUM 1.8 mg/dL (1.6-2.6); POTASSIUM 3.7 mmol/L (3.5-4.5); TOTAL PROTEIN 7.2 gm/dL (6.2-8.1)
--- NOTE | 2021-09-01 19:18 | NUR ---
PT LAYING IN BED RESTING. PT DENIES ANY PAIN AT THIS TIME.
[2021-09-01 20:21] VITALS: BP 152/71; PULSE 105; TEMP 97.9
[2021-09-02] VITALS (7 sets, daily range): BP systolic 128–184; BP diastolic 56–92; PULSE 91–105; TEMP 97.3–98.1
[2021-09-02 06:43] LABS: HEMOGLOBIN 11.9 g/dl (13.5-18.0); MEAN CELL VOLUME 87 fl (80.0-100.0); MEAN CORPUSCULAR HEMOGLOBIN 28 pg (27-31); MEAN CORPUSCULAR HGB CONC 32 g/dl (33.0-37.0); MEAN PLATELET VOLUME 10.7 fl (7.4-10.4); PLATELET COUNT 183 K/mm3 (130-400); RED BLOOD COUNT 4.22 M/mm3 (4.20-5.60); REDCELL DISTRIBUTION WIDTH-CV 15.9 % (11.5-14.5)
[2021-09-02 06:54] LABS: HEMATOCRIT 36.9 % (42.0-52.0)
[2021-09-02 07:05] LABS: CALCIUM 8.6 mg/dL (8.4-10.2); CREATININE, serum 1.45 mg/dL (0.72-1.25); MAGNESIUM 1.9 mg/dL (1.6-2.6)
[2021-09-02 07:26] LABS: BAND 7 % (0-10); LYMPHOCYTE 10 % (20.0-51.0); NEUTROPHILS 83 % (42.0-75.2); PLATELET ESTIMATE NORMAL (NORMAL)
[2021-09-02 10:22] LABS: INR 1.1 (0.8-3.0); PROTHROMBIN TIME 12.6 SECONDS (9.7-12.8)
--- NOTE | 2021-09-02 10:33 | NUR ---
PT RESTING IN BED. MORNING MEDICATIONS GIVEN. SHIFT ASSESSMENT COMPLETED. PT IS SOB WITH CONVERSATION AND ANY ACTIVITY. CURRENTLY ON 3L OF O2 VIA NC. PT DENIES ANY PAIN OR NEEDS AT THIS TIME. UPDATED PT AND FAMILY ON POC. WILL CONTINUE TO MONITOR.
[2021-09-02 11:27] LABS: PLEURAL FLUID RBC 6000 /mm3 (0-0); PLEURAL FLUID WBC 2306 /mm3
[2021-09-02 11:34] LABS: PLEURAL FLUID APPEARANCE HAZY; PLEURAL FLUID COLOR YELLOW
--- NOTE | 2021-09-02 12:23 | NUR ---
Vira: No sabianism preference Situation: Occupational Therapy Assist stopped by room on rounds Background: PT was resting in bed Assessment: PT seems content and appreciated the visit Recommendation: cnc router operator will follow up as needed
--- NOTE | 2021-09-02 13:54 | NUR ---
Information Technology Professor met with patient and patient's , oDlores to discuss discharge planning. Patient lives in [place] and goes to [facility] for primary care and medications. Patient has home oxygen that he uses at night and with ambulation from [facility]. Patient is normally independent with ADLS and plans on returning home at time of discharge. Patient has two walkers and two canes. Patient reports his is his DPOA-HC. SW discussed Home Health services with patient and Dolores advised they've had Accessible HH in the past but do not feel they need any services at this time. Discharge Plan: Home
[2021-09-02 22:35] LABS: BODY FLUID PH (AMS) 8 (())
--- NOTE | 2021-09-02 22:36 | NUR ---
Patient denies pain and discomfort. Peripheral IV to right forearm, with ABX and Steroids given per orders. Reports SOB with exertion. LS labored with exertion. On oxygen at 3 L/min via NC. LS coarse crackles throughout. Moist, productive cough. Voices no questions, needs, or concerns at this time. In bed with call light within reach.
[2021-09-03] VITALS (12 sets, daily range): BP systolic 118–180; BP diastolic 70–94; PULSE 85–97; TEMP 97.4–98.2
--- NOTE | 2021-09-03 05:55 | NUR ---
Recieved IV ABX and Steroids per orders. Denies pain and discomfort. Has been NPO since midnight for procedures today. Voices no questions, needs, or concerns at this time. In bed with call light within reach.
[2021-09-03 09:37] LABS: HEMOGLOBIN 11.8 g/dl (13.5-18.0); MEAN CELL VOLUME 89 fl (80.0-100.0); MEAN CORPUSCULAR HEMOGLOBIN 29 pg (27-31); MEAN CORPUSCULAR HGB CONC 32 g/dl (33.0-37.0); MEAN PLATELET VOLUME 10.1 fl (7.4-10.4); PLATELET COUNT 251 K/mm3 (130-400); RED BLOOD COUNT 4.12 M/mm3 (4.20-5.60); REDCELL DISTRIBUTION WIDTH-CV 16.2 % (11.5-14.5)
[2021-09-03 09:43] LABS: HEMATOCRIT 36.6 % (42.0-52.0)
[2021-09-03 09:49] LABS: CALCIUM 8.2 mg/dL (8.4-10.2); CREATININE, serum 1.56 mg/dL (0.72-1.25); POTASSIUM 4.4 mmol/L (3.5-4.5)
[2021-09-03 09:54] LABS: PLEURAL FLUID RBC 9000 /mm3 (0-0); PLEURAL FLUID WBC 3454 /mm3
--- NOTE | 2021-09-03 09:59 | NUR ---
PT RESTING IN BED. MORNING MEDICATIONS GIVEN. SHIFT ASSESSMENT COMPLETED. THIS RN ASSISTED DR. ANGUIANO WITH L THORACENTESIS, PT TOLERATED PROCEDURE WELL. AT BEDSIDE AT THIS TIME, UPDATED ON POC. DENIES ANY PAIN OR NEEDS AT THIS TIME. WILL CONTINUE TO MONITOR.
[2021-09-03 10:01] LABS: PLEURAL FLUID APPEARANCE HAZY; PLEURAL FLUID COLOR AMBER
[2021-09-03 10:08] LABS: BAND 2 % (0-10); NEUTROPHILS 89 % (42.0-75.2); PLATELET ESTIMATE NORMAL (NORMAL)
[2021-09-03 10:09] LABS: BURR CELLS 1+; HYPOCHROMIA 1+; OVALOCYTES 1+; POIKILOCYTOSIS 1+
[2021-09-03 10:10] LABS: ANISOCYTOSIS 1+; LYMPHOCYTE 6 % (20.0-51.0)
[2021-09-03 10:46] LABS: BASO % 0.1 % (0.0-2.0); GRAN % 94.1 % (42.2-75.2); HEMOGLOBIN 11.5 g/dl (13.5-18.0); LYMPH # 0.9 K/mm3 (1.2-3.4); LYMPH % 3.6 % (20.0-51.0); MEAN CELL VOLUME 89 fl (80.0-100.0); MEAN CORPUSCULAR HEMOGLOBIN 28 pg (27-31); MEAN CORPUSCULAR HGB CONC 32 g/dl (33.0-37.0); MEAN PLATELET VOLUME 10.5 fl (7.4-10.4); MONO # 0.4 K/mm3 (0.1-0.6); MONO % 1.5 % (1.7-9.3); PLATELET COUNT 245 K/mm3 (130-400); RED BLOOD COUNT 4.07 M/mm3 (4.20-5.60); REDCELL DISTRIBUTION WIDTH-CV 16.1 % (11.5-14.5)
[2021-09-03 10:53] LABS: HEMATOCRIT 36.4 % (42.0-52.0)
--- NOTE | 2021-09-03 20:30 | NUR ---
Initial shift assessment done- denies pain tonight- denies feeling SOB at rest, o2 at 3L/nc, very [place], states is feeling better after procedures today {bronch/Thora},,hoping to get some sleep tonight- understands to call for assistance when out of bed
[2021-09-04 03:43] VITALS: BP 165/74; PULSE 75; TEMP 97.4
--- NOTE | 2021-09-04 05:19 | NUR ---
Quiet night- VSS, 02 sats 96% on 3L/nc, wants to just get some sleep and having many interuptions with meds/vitals/am lab draws-
[2021-09-04 06:13] LABS: HEMOGLOBIN 10.9 g/dl (13.5-18.0); MEAN CELL VOLUME 90 fl (80.0-100.0); MEAN CORPUSCULAR HEMOGLOBIN 29 pg (27-31); MEAN CORPUSCULAR HGB CONC 32 g/dl (33.0-37.0); MEAN PLATELET VOLUME 10.2 fl (7.4-10.4); PLATELET COUNT 266 K/mm3 (130-400); RED BLOOD COUNT 3.77 M/mm3 (4.20-5.60); REDCELL DISTRIBUTION WIDTH-CV 16.4 % (11.5-14.5)
[2021-09-04 06:25] LABS: HEMATOCRIT 33.9 % (42.0-52.0)
[2021-09-04 06:28] LABS: CALCIUM 7.8 mg/dL (8.4-10.2); CREATININE, serum 1.53 mg/dL (0.72-1.25); POTASSIUM 4.3 mmol/L (3.5-4.5)
[2021-09-04 07:03] LABS: LYMPHOCYTE 6 % (20.0-51.0); NEUTROPHILS 91 % (42.0-75.2); PLATELET ESTIMATE NORMAL (NORMAL)
[2021-09-04 07:04] LABS: ANISOCYTOSIS 1+
[2021-09-04 07:51] VITALS: BP 166/79; BP 175/85; PULSE 81; TEMP 97.8
--- NOTE | 2021-09-04 08:54 | NUR ---
Patient is sitting in bed, having his breakfast, alert and oriented x4, with HTN. 3L O2 NC. Assessment completed, meds provided. No other needs at this time. Call light within reach.
[2021-09-04 11:19] VITALS: BP 151/79; PULSE 80; TEMP 97.5
[2021-09-04 15:30] VITALS: BP 155/69; PULSE 86; TEMP 97.5
--- NOTE | 2021-09-04 18:07 | NUR ---
Patient has had an uneventful day. He has had his medications, meals and naps. Continues with 3L NC. Report will be given to night RN.
--- NOTE | 2021-09-04 20:30 | NUR ---
Initial shift assessment done- denies pain, o2 at 3L/nc -sats 94-96%, denies SOb at rest, very [place],, requesting some chocolate ice cream before bed- hopes to get some sleep tonight.
[2021-09-04 20:50] VITALS: BP 183/81; PULSE 92; TEMP 98
[2021-09-04 23:58] VITALS: BP 164/82; PULSE 73; TEMP 97.6
[2021-09-05 03:27] VITALS: BP 161/73; PULSE 76; TEMP 97.5
--- NOTE | 2021-09-05 06:15 | NUR ---
Quiet night- o2 sats 98% on 4L/nc, no requests, did get a CXR this AM, Did receive Hydralazine PRN x1 last night for B/P-
[2021-09-05 06:37] LABS: HEMATOCRIT 37.5 % (42.0-52.0); MEAN CELL VOLUME 88 fl (80.0-100.0); MEAN CORPUSCULAR HEMOGLOBIN 28 pg (27-31); MEAN CORPUSCULAR HGB CONC 32 g/dl (33.0-37.0); MEAN PLATELET VOLUME 10.1 fl (7.4-10.4); PLATELET COUNT 288 K/mm3 (130-400); RED BLOOD COUNT 4.24 M/mm3 (4.20-5.60); REDCELL DISTRIBUTION WIDTH-CV 16.5 % (11.5-14.5)
[2021-09-05 06:53] LABS: C-REACTIVE PROTEIN 0.67 mg/dL (0.00-0.50); CALCIUM 7.6 mg/dL (8.4-10.2); CREATININE, serum 1.53 mg/dL (0.72-1.25); POTASSIUM 4.2 mmol/L (3.5-4.5)
[2021-09-05 07:26] VITALS: BP 149/85; PULSE 79; TEMP 97.8
--- NOTE | 2021-09-05 08:25 | NUR ---
Patient is resting in bed, alert and orieted x4, VSS but HT 140-160's. States he was able to sleep just for 3 hrs. Right now with 4L O2 NC. Assessment completed, meds provided. No other needs at this time. Call light within reach.
[2021-09-05 09:35] LABS: HYPOCHROMIA 3+; LYMPHOCYTE 5 % (20.0-51.0); NEUTROPHILS 93 % (42.0-75.2)
[2021-09-05 09:36] LABS: ANISOCYTOSIS 1+; PLATELET ESTIMATE NORMAL (NORMAL)
[2021-09-05 09:39] LABS: SCHISTOCYTES 1+
[2021-09-05 11:27] VITALS: BP 154/68; PULSE 91; TEMP 97.6
[2021-09-05] MEDS ORDERED: DOXYCYCLINE 10100 MG PO (11:51)
[2021-09-05] MEDS ORDERED: PROAIR HFA0.09 MG/AC IH (11:51)
[2021-09-05] MEDS ORDERED: OMNICEF 300MG300 MG PO (11:51)
[2021-09-05] MEDS ORDERED: PREDNISONE20 MG PO (11:51)
--- NOTE | 2021-09-05 13:52 | NUR ---
Informatics Scientist notified by Laurel VAZQUEZ that patient is ready to discharge to home, but patient spouse is no longer at bedside. Informatics Scientist attempted contact to patient spouse Dolores ([phone]) and left VM requesting call back to confirm plan of care. Laurel VAZQUEZ updated.
--- NOTE | 2021-09-05 15:10 | NUR ---
Patient and were provided with discharge instructions. All questions answered. IV and telemetry discontinued. Pt leave hostpital with and accompanied by EARLY MORNING BABYSITTER.
[2021-09-07 07:50] LABS: PATHOLOGY DIFF REVIEW OK
== END 2021-09-05 14:45 | disposition home or self-care (01) | DRG 193 ==
LOC: MEDICAL 14:41
PROVIDERS: Internal Medicine Pulmonary Disease; Internal Medicine Sleep Medicine; Physician Assistant; ADMIT Internal Medicine
PROC: 0W993ZX Drainage of Right Pleural Cavity, Percutaneous Approach, Diagnostic (ICD-10-PCS; principal; 2021-09-02)
PROC: 0B918ZZ Drainage of Trachea, Via Natural or Artificial Opening Endoscopic (ICD-10-PCS; 2021-09-03)
PROC: 0BD98ZX Extraction of Lingula Bronchus, Via Natural or Artificial Opening Endoscopic, Diagnostic (ICD-10-PCS; 2021-09-03)
PROC: 0BD38ZX Extraction of Right Main Bronchus, Via Natural or Artificial Opening Endoscopic, Diagnostic (ICD-10-PCS; 2021-09-03)
PROC: 0BD78ZX Extraction of Left Main Bronchus, Via Natural or Artificial Opening Endoscopic, Diagnostic (ICD-10-PCS; 2021-09-03)
PROC: 0BDJ8ZX Extraction of Left Lower Lung Lobe, Via Natural or Artificial Opening Endoscopic, Diagnostic (ICD-10-PCS; 2021-09-03)
PROC: 0W9B3ZX Drainage of Left Pleural Cavity, Percutaneous Approach, Diagnostic (ICD-10-PCS; 2021-09-03)
DX: J18.1 Lobar pneumonia, unspecified organism (principal); J96.01 Acute respiratory failure with hypoxia; J91.8 Pleural effusion in other conditions classified elsewhere; J44.9 Chronic obstructive pulmonary disease, unspecified; E78.5 Hyperlipidemia, unspecified; G40.909 Epilepsy, unspecified, not intractable, without status epilepticus; Z66 Do not resuscitate; I12.9 Hypertensive chronic kidney disease with stage 1 through stage 4 chronic kidney disease, or unspecified chronic kidney disease; K21.9 Gastro-esophageal reflux disease without esophagitis; E11.22 Type 2 diabetes mellitus with diabetic chronic kidney disease; M62.81 Muscle weakness (generalized); R53.81 Other malaise; K59.00 Constipation, unspecified; R13.10 Dysphagia, unspecified; N18.30 Chronic kidney disease, stage 3 unspecified; M19.90 Unspecified osteoarthritis, unspecified site; F32.A Depression, unspecified; I73.9 Peripheral vascular disease, unspecified; Z86.73 Personal history of transient ischemic attack (TIA), and cerebral infarction without residual deficits; Z87.19 Personal history of other diseases of the digestive system; Z87.01 Personal history of pneumonia (recurrent); Z87.891 Personal history of nicotine dependence; Z85.820 Personal history of malignant melanoma of skin
CPT/HCPCS: J0360; J2543; J2704; J2920; J2930

== ENCOUNTER → 2021-10-06 | Outpatient (CLI) | payer MEDICARE, OTHER ==
[~2021-10-06] VITALS: Ht 172.7 cm; Wt 73.7 kg
[~2021-10-06] MED LIST changes: +PREDNISONE20 MG PO
[2021-10-06 06:59] VITALS: BP 176/84; PULSE 83; TEMP 97.3
[2021-10-06 07:55] VITALS: BP 187/81; PULSE 84
== END ==
LOC: COL.RAD 10-01 06:45
DX: C43.21 Malignant melanoma of right ear and external auricular canal (principal)
CPT/HCPCS: 32106

== ENCOUNTER 2021-10-26 09:36 | Emergency (ER) | payer MEDICARE, OTHER ==
[~2021-10-26] VITALS: Ht 172.7 cm; Wt 72.7 kg
[2021-10-26 11:09] LABS: BASO # 0.1 K/mm3 (0.0-0.2); BASO % 0.5 % (0.0-2.0); EOS # 0.8 K/mm3 (0.0-0.7); EOS % 7.6 % (0.0-4.0); GRAN # 7.6 K/mm3 (1.4-6.5); GRAN % 75.5 % (42.2-75.2); HEMATOCRIT 37.2 % (42.0-52.0); HEMOGLOBIN 12.1 g/dl (13.5-18.0); LYMPH # 0.8 K/mm3 (1.2-3.4); LYMPH % 8.2 % (20.0-51.0); MEAN CELL VOLUME 88 fl (80.0-100.0); MEAN CORPUSCULAR HEMOGLOBIN 29 pg (27-31); MEAN CORPUSCULAR HGB CONC 33 g/dl (33.0-37.0); MEAN PLATELET VOLUME 10.2 fl (7.4-10.4); MONO # 0.8 K/mm3 (0.1-0.6); PLATELET COUNT 225 K/mm3 (130-400); RED BLOOD COUNT 4.23 M/mm3 (4.20-5.60); REDCELL DISTRIBUTION WIDTH-CV 16.4 % (11.5-14.5)
[2021-10-26 11:17] LABS: ALBUMIN 2.5 gm/dL (3.4-4.8); BILIRUBIN,TOTAL 0.4 mg/dL (0.2-1.2); CALCIUM 9.1 mg/dL (8.4-10.2); CREATININE, serum 1.62 mg/dL (0.72-1.25); TOTAL PROTEIN 7.3 gm/dL (6.2-8.1)
[2021-10-26 11:22] LABS: TROPONIN-I 0.013 ng/mL (0.00-0.033)
[2021-10-26 12:39] LABS: INR 1.1 (0.8-3.0); PROTHROMBIN TIME 12.4 SECONDS (9.7-12.8)
[2021-10-26 15:35] VITALS: BP 169/94; PULSE 89; TEMP 97.7
== END 2021-10-26 15:35 | disposition home or self-care (01) ==
LOC: COL.ER 09:36
PROVIDERS: Nurse Practitioner
DX: J90 Pleural effusion, not elsewhere classified (principal); Z87.891 Personal history of nicotine dependence; Z99.81 Dependence on supplemental oxygen
CPT/HCPCS: 19804

== ENCOUNTER 2021-10-28 06:32 | Outpatient (CLI) | payer MEDICARE, OTHER ==
[~2021-10-28] VITALS: Ht 172.7 cm; Wt 73.1 kg
[2021-10-28 07:21] VITALS: BP 148/70; PULSE 90; TEMP 97.8
[2021-10-28 08:30] VITALS: BP 156/75; BP 156/76; PULSE 90; TEMP 98.2
--- NOTE | 2021-10-28 08:30 | NUR ---
PT TO BAY 8 PER CART FROM PROCEDURE ROOM. REPORT RECEIVED. VS OBTAINED. PT DENIES ANY NEEDS AT THIS TIME.
[2021-10-28 08:45] VITALS: BP 162/78; PULSE 91
[2021-10-28 09:00] VITALS: BP 166/64; PULSE 94
[2021-10-28 09:15] VITALS: BP 156/79; PULSE 91
--- NOTE | 2021-10-28 09:15 | NUR ---
WHEN CONDUCTING SUICIDE RISK ASSESSMENT, PATIENT STATED THAT YEARS AGO HE HAD THREATENED TO SHOOT HIMSELF BUT DID NOT INTEND TO ACT ON IT; SINCE THEN PATIENT HAS BEEN ON ANTIDEPRESSANTS AND IS NO LONGER HAVING SUICIDAL IDEATIONS.
[2021-10-28 09:35] LABS: PLEURAL FLUID RBC 6000 /mm3 (0-0); PLEURAL FLUID WBC 5673 /mm3
[2021-10-28 09:40] LABS: PLEURAL FLUID COLOR YELLOW
[2021-10-28 09:41] LABS: PLEURAL FLUID APPEARANCE CLOUDY
[2021-10-28 09:45] VITALS: BP 168/81; PULSE 96
--- NOTE | 2021-10-28 10:30 | NUR ---
0915-PT TOLERTAING PO WITHOUT DIFFICULTY. DENIES ANY NEEDS 1015-DISCHARGE EDUCATION COMPLETED WITH PT AND HIS . VERBALIZED UNDERSTANDING OF HOME AND FOLLOW UP CARE. ALL QUESTIONS ANSWERED. DISCHARGE PAPERWORK GIVEN TO PT. 1030-PT OFF UNIT PER WHEELCHAIR. PT DISCHARGED TO HOME WITH HIS PER PERSONAL VEHICLE.
== END 2021-10-28 10:30 | disposition home or self-care (01) ==
LOC: SDCO 06:32
PROVIDERS: Internal Medicine Pulmonary Disease
DX: J90 Pleural effusion, not elsewhere classified (principal); Z87.891 Personal history of nicotine dependence; D72.829 Elevated white blood cell count, unspecified
CPT/HCPCS: 19804

== ENCOUNTER 2021-11-23 06:30 | Outpatient (CLI) | payer MEDICARE, OTHER ==
[~2021-11-23] VITALS: Ht 172.7 cm; Wt 72.4 kg
--- NOTE | 2021-11-23 07:15 | NUR ---
0640 ADMITTED AMBULATORY TO ROOM 7. PATIENT ALERT, ORIENTED, COOPERATIVE. PATIENT HOME O2 ON AT 3L/NC. ADMITS TO WEARING WITH ACTIVITY AND AT NIGHT. PATIENT ACCOMPANIED BY . PATIENT CONFIRMS PROCEDURE. CONSENT SIGNED. GOWN ON WITH MINIMAL ASSISTANCE FROM . LYING SUPINE ON CART. REMOVES O2 AT REST. LUNG SOUNDS DECREASED BILATERAL. RESP UNLABORED AT REST. INCREASED DYSPNEA OBSERVED WITH MINIMAL ACTIVITY. VITAL SIGNS OBTAINED. MEDICATIONS CONFIRMED WITH PATIENT AND . HOB ELEVATED 45 DEGREES. CALL LIGHT AT SIDE. REMAINS IN ROOM.
[2021-11-23] MEDS ORDERED: PRINIVIL2.5 MG PO (07:18)
[2021-11-23] MEDS ORDERED: [UNRECOGNIZED DRUG - OTHER] (07:21)
[2021-11-23 07:24] VITALS: BP 157/67; PULSE 88; TEMP 97.5
[2021-11-23 08:35] VITALS: BP 153/776; PULSE 86; TEMP 97.6
[2021-11-23 08:50] VITALS: BP 149/67; PULSE 86
[2021-11-23 09:05] VITALS: BP 148/68; PULSE 84
--- NOTE | 2021-11-23 09:15 | NUR ---
0835 RETURNS TO ROOM 7 PER CART. AWAKE, ALERT. RESP UNLABORED VITAL SIGNS STABLE ON ROOM AIR. DENIES DYSPNEA. LUNG SOUNDS DECREASED BILATERAL. NO COUGH. 0840 PORTABLE CHEST XRAY DONE. 0900 TOLERATES PO ORANGE JUICE WITHOUT NAUSEA. NO REDNESS OR DRAINAGE OBSERVED AT PROCEDURE SITES. 0905 DISCHARGE INSTRUCTIONS REVIEWED WITH PATIENT AND . COPY OF INSTRUCTIONS PROVIDED.
== END 2021-11-23 09:27 | disposition home or self-care (01) ==
LOC: SDCO 06:30
DX: J90 Pleural effusion, not elsewhere classified (principal); Z87.891 Personal history of nicotine dependence; J44.9 Chronic obstructive pulmonary disease, unspecified
CPT/HCPCS: 19804

== ENCOUNTER 2022-03-14 12:30 | Inpatient (IN) | payer MEDICARE, OTHER ==
[~2022-03-14] VITALS: Ht 172.7 cm; Wt 67.6 kg
[~2022-03-14 12:30] MED LIST changes: +PRINIVIL2.5 MG PO; +[UNRECOGNIZED DRUG - OTHER]
[2022-03-14 13:59] LABS: MEAN CELL VOLUME 88 fl (80.0-100.0); MEAN CORPUSCULAR HGB CONC 32 g/dl (33.0-37.0); PLATELET COUNT 321 K/mm3 (130-400); REDCELL DISTRIBUTION WIDTH-CV 16.8 % (11.5-14.5)
[2022-03-14 14:08] LABS: HEMATOCRIT 29.9 % (42.0-52.0); HEMOGLOBIN 9.7 g/dl (13.5-18.0); MEAN CORPUSCULAR HEMOGLOBIN 29 pg (27-31)
[2022-03-14 14:17] LABS: ALBUMIN 2.2 gm/dL (3.4-4.8); BILIRUBIN,TOTAL 0.4 mg/dL (0.2-1.2); CALCIUM 8.7 mg/dL (8.4-10.2); CREATININE, serum 1.92 mg/dL (0.72-1.25); POTASSIUM 4.7 mmol/L (3.5-4.5); TOTAL PROTEIN 6.8 gm/dL (6.2-8.1)
[2022-03-14 14:37] LABS: TSH w REFLEX 2.79 uIU/mL (0.350-4.940)
[2022-03-14 14:51] LABS: BAND 9 % (0-10); LYMPHOCYTE 4 % (20.0-51.0); NEUTROPHILS 86 % (42.0-75.2)
[2022-03-14 14:52] LABS: ANISOCYTOSIS 2+; HYPOCHROMIA 1+
[2022-03-14 14:53] LABS: PLATELET ESTIMATE NORMAL (NORMAL)
[2022-03-14 15:46] LABS: TROPONIN-I 0.014 ng/mL (0.00-0.033)
[2022-03-14] MEDS ORDERED: ABRAXANE100 MG (17:01)
[2022-03-14] MEDS ORDERED: LASIX 40MG TABL40 MG PO (17:29)
[2022-03-14] MEDS ORDERED: K-DUR 10 MEQ T10 MEQ PO (17:29)
[2022-03-14] MEDS ORDERED: ABRAXANE100 MG IV (20:24)
[2022-03-14 20:27] VITALS: BP 170/60; PULSE 103; TEMP 97.5
[2022-03-14 20:31] VITALS: PULSE 103; TEMP 97.5
--- NOTE | 2022-03-14 22:28 | NUR ---
Patient arrived to medical [facility] from ER around 1939. at [facility] and assisted with admission. Patient denies having pain and discomfort. Peripheral INT to right AC. Denies SOB and dyspnea. reports patient wears oxygen at 2 L/min via NC when ambulating long distances. Redness/2-3+ edema to BLE. High fall risk precautions in place. Voices no questions, needs, or concerns at this time. In bed with call light within reach. Bed alarm on.
[2022-03-15] VITALS (12 sets, daily range): BP systolic 117–161; BP diastolic 52–58; PULSE 91–111; TEMP 97.5–99.6
[2022-03-15 00:35] LABS: COLLECTION METHOD CLEAN CATCH
[2022-03-15 00:44] LABS: URINE APPEARANCE Clear (CLEAR/HAZY); URINE COLOR Yellow (YELLOW); URINE PROTEIN(semi-quant) 2+ (NEGATIVE)
[2022-03-15 00:45] LABS: URINE BLOOD TRACE-INTACT (NEGATIVE); URINE GLUCOSE Negative (NEGATIVE); URINE KETONE Negative (NEGATIVE); URINE NITRATE Negative (NEGATIVE); URINE UROBILINOGEN 0.2 E.U/dL (0.2-1.0)
[2022-03-15 00:56] LABS: MUCOUS Present (NOT PRESENT); SQUAMOUS EPITHELIAL 0-2 /hpf (0-10); URINE BACTERIA None Seen /hpf (NONE SEEN)
--- NOTE | 2022-03-15 06:11 | NUR ---
One assist with ambulating to bathroom. Voices no questins, needs, or concerns at this time. In bed with call light within reach. High fall risk precautions in place. Bed alarm on.
[2022-03-15 06:42] LABS: MEAN CELL VOLUME 89 fl (80.0-100.0); MEAN CORPUSCULAR HGB CONC 32 g/dl (33.0-37.0); MEAN PLATELET VOLUME 10.4 fl (7.4-10.4); PLATELET COUNT 271 K/mm3 (130-400); REDCELL DISTRIBUTION WIDTH-CV 16.6 % (11.5-14.5)
[2022-03-15 06:52] LABS: HEMATOCRIT 25.7 % (42.0-52.0); HEMOGLOBIN 8.3 g/dl (13.5-18.0); MEAN CORPUSCULAR HEMOGLOBIN 29 pg (27-31)
[2022-03-15 06:59] LABS: CALCIUM 8.4 mg/dL (8.4-10.2); CREATININE, serum 1.74 mg/dL (0.72-1.25); POTASSIUM 4.2 mmol/L (3.5-4.5)
[2022-03-15 07:29] LABS: BAND 4 % (0-10); EOSINOPHIL 1 % (0-4); LYMPHOCYTE 4 % (20.0-51.0); NEUTROPHILS 90 % (42.0-75.2); PLATELET ESTIMATE NORMAL (NORMAL)
--- NOTE | 2022-03-15 09:16 | NUR ---
Pt assessment complete. Pt is laying in bed upon entry, he is very hard of hearing, but is alert and oriented. Pt reports some pain to ankles. Some SOB at rest. Denies any current needs, call light within reach.
--- NOTE | 2022-03-15 12:55 | NUR ---
Vira: No tenriism preference Situation: traffic police officer went to room on rounds Background: Pt was resting and content with by his side Assessment: Pt has no needs right now. Recommendation: traffic police officer will follow up as needed
--- NOTE | 2022-03-15 14:17 | NUR ---
REBECCA met with the patient and his , Dolores (ph#[phone]), to discuss discharge plan. The patient lives in [place] with his and their son, Nehemias. Dolores states that the patient is independent with ADLs and has a cane and walkers. The patient's [facility] and his medications from [place]. Dolores states that he does not have a specific provider at [facility]. The patient's DPOA-HC is in EMR and it designates his . Dolores states that the plan is for the patient to return home with her and their son upon discharge. No additional needs at this time. *Discharge plan: home with family*
--- NOTE | 2022-03-15 18:37 | NUR ---
Pt had uneventful day. Rested well, denied many needs or concerns. Did not want to eat dinner. No needs at this time.
[2022-03-16] VITALS (10 sets, daily range): BP systolic 123–142; BP diastolic 46–54; PULSE 88–102; TEMP 98.5–99
--- NOTE | 2022-03-16 05:09 | NUR ---
PATIENT HAD NO CHANGES THROUGHOUT THE NIGHT AND VOICES NO CONCERNS OR QUESTIONS AT THIS TIME
[2022-03-16 06:55] LABS: BASO % 0.4 % (0.0-2.0); EOS % 0.2 % (0.0-4.0); GRAN # 8.2 K/mm3 (1.4-6.5); GRAN % 88.9 % (42.2-75.2); LYMPH # 0.7 K/mm3 (1.2-3.4); LYMPH % 7.4 % (20.0-51.0); MEAN CELL VOLUME 86 fl (80.0-100.0); MEAN CORPUSCULAR HGB CONC 33 g/dl (33.0-37.0); MEAN PLATELET VOLUME 10.4 fl (7.4-10.4); MONO # 0.3 K/mm3 (0.1-0.6); MONO % 2.7 % (1.7-9.3); PLATELET COUNT 278 K/mm3 (130-400); RED BLOOD COUNT 2.73 M/mm3 (4.20-5.60); REDCELL DISTRIBUTION WIDTH-CV 16.6 % (11.5-14.5)
[2022-03-16 06:59] LABS: CALCIUM 8.1 mg/dL (8.4-10.2); CREATININE, serum 1.51 mg/dL (0.72-1.25); HEMATOCRIT 23.6 % (42.0-52.0); HEMOGLOBIN 7.8 g/dl (13.5-18.0); MEAN CORPUSCULAR HEMOGLOBIN 29 pg (27-31); POTASSIUM 3.7 mmol/L (3.5-4.5)
[2022-03-16 07:38] LABS: C-REACTIVE PROTEIN 7.39 mg/dL (0.00-0.50)
--- NOTE | 2022-03-16 16:23 | NUR ---
PATIENT IS STABLE. QUIET AND TOOK MANY NAPS TODAY. DID PARTICIPATE IN PT AND OT. FECCAL OCCULT STOOL CAME BACK POSITIVE, NOTIFIED DR STEELE. VENOUS DOPPLER CAME BACK NEGATIVE FOR DVT. PATIENT IS AXOX4, VSS. TAKING PILLS WHOLE WITH THIN LIQUIDS. EATING ALL MEALS. HAS NOT COMPLAINED OF ANY PAIN. WILL CONTINUE TO MONITOR. BED ALARM ON.
--- NOTE | 2022-03-16 23:30 | NUR ---
Patient assessed arund 2044. Alert and oriented, and able to make needs known. Continues to have redness to BLE. Voices no questions, needs, or concerns at this time. In bed with call light within reach. Bed alarm on.
[2022-03-17] VITALS (13 sets, daily range): BP systolic 131–152; BP diastolic 50–66; PULSE 85–100; TEMP 97.9–99.1
--- NOTE | 2022-03-17 05:00 | NUR ---
Patient has denied having pain and discomfort this shift. Has been NPO since midnight for GI consult today. Voices no questions, needs, or concerns at this time. In bed with call light within reach. Bed alarm on.
[2022-03-17 07:03] LABS: BASO # 0.1 K/mm3 (0.0-0.2); BASO % 0.8 % (0.0-2.0); EOS # 0.1 K/mm3 (0.0-0.7); EOS % 0.8 % (0.0-4.0); GRAN # 5.8 K/mm3 (1.4-6.5); GRAN % 76.1 % (42.2-75.2); LYMPH # 1.3 K/mm3 (1.2-3.4); LYMPH % 16.5 % (20.0-51.0); MEAN CELL VOLUME 88 fl (80.0-100.0); MEAN CORPUSCULAR HGB CONC 32 g/dl (33.0-37.0); MEAN PLATELET VOLUME 10.2 fl (7.4-10.4); MONO # 0.4 K/mm3 (0.1-0.6); MONO % 4.6 % (1.7-9.3); RED BLOOD COUNT 3.28 M/mm3 (4.20-5.60); REDCELL DISTRIBUTION WIDTH-CV 16.4 % (11.5-14.5)
[2022-03-17 07:14] LABS: HEMATOCRIT 28.7 % (42.0-52.0); HEMOGLOBIN 9.3 g/dl (13.5-18.0); MEAN CORPUSCULAR HEMOGLOBIN 28 pg (27-31); PLATELET COUNT 399 K/mm3 (130-400)
[2022-03-17 07:25] LABS: C-REACTIVE PROTEIN 6.95 mg/dL (0.00-0.50); CALCIUM 8.2 mg/dL (8.4-10.2); CREATININE, serum 1.69 mg/dL (0.72-1.25); POTASSIUM 3.6 mmol/L (3.5-4.5)
--- NOTE | 2022-03-17 10:15 | NUR ---
Pt assessment complete. Pt is sitting up in bed upon entry, he is A/O x4. Very hard of hearing. Denies any pain, states his feet feel much better. Denies any SOB. No N/V. POC discussed with patient and his . No needs at this time.
--- NOTE | 2022-03-17 18:55 | NUR ---
Bowel prep given to patient, he appears to be frustrated with this so discussed POC with him. No needs at this time.
[2022-03-18] VITALS (11 sets, daily range): BP systolic 115–171; BP diastolic 54–70; PULSE 85–101; TEMP 97.4–98.6
--- NOTE | 2022-03-18 05:30 | NUR ---
ASSESSMENT COMPLETE FOR CERTIFIED NURSE MIDWIFE. PT CONTINUES BOWL PREP. PT CONTINUES HAVING BROWN LOOSE STOOLS. WILL CONTINUE TO MONITOR PT'S STOOLS AND ENCOURAGE CONTNIUED BOWL PREP. WILL PASS ON TO DAY SHIFT RN. PT EXPRESSED NO ADDITIONAL NEEDS AT THIS TIME. CALL LIGHT WITHIN REACH.
[2022-03-18 06:31] LABS: BASO % 0.5 % (0.0-2.0); EOS # 0.1 K/mm3 (0.0-0.7); EOS % 1.4 % (0.0-4.0); GRAN # 5.3 K/mm3 (1.4-6.5); GRAN % 80.1 % (42.2-75.2); LYMPH # 0.7 K/mm3 (1.2-3.4); LYMPH % 10.2 % (20.0-51.0); MEAN CELL VOLUME 87 fl (80.0-100.0); MEAN CORPUSCULAR HGB CONC 33 g/dl (33.0-37.0); MONO # 0.5 K/mm3 (0.1-0.6); MONO % 7.3 % (1.7-9.3); PLATELET COUNT 320 K/mm3 (130-400); RED BLOOD COUNT 2.76 M/mm3 (4.20-5.60); REDCELL DISTRIBUTION WIDTH-CV 16.3 % (11.5-14.5)
[2022-03-18 06:32] LABS: HEMATOCRIT 23.9 % (42.0-52.0); HEMOGLOBIN 7.9 g/dl (13.5-18.0); MEAN CORPUSCULAR HEMOGLOBIN 29 pg (27-31)
[2022-03-18 06:50] LABS: C-REACTIVE PROTEIN 5.08 mg/dL (0.00-0.50); CREATININE, serum 1.45 mg/dL (0.72-1.25); POTASSIUM 3.9 mmol/L (3.5-4.5)
--- NOTE | 2022-03-18 09:15 | NUR ---
RT TX REFUSED
[2022-03-18] MEDS ORDERED: CEPHALEXIN500 M1 PO (16:07)
[2022-03-18] MEDS ORDERED: PROTONIX 40MG T40 MG PO (16:09)
--- NOTE | 2022-03-18 18:59 | NUR ---
IV removed and discharge instructions reviewed with patient and spouse.
== END 2022-03-18 18:30 | disposition home or self-care (01) | DRG 602 ==
LOC: COL.ER 12:30 → MEDICAL 16:32
PROVIDERS: Emergency Medicine; Hospitalist; Internal Medicine Gastroenterology; Physician Assistant; ADMIT Internal Medicine
PROC: 0DB38ZX Excision of Lower Esophagus, Via Natural or Artificial Opening Endoscopic, Diagnostic (ICD-10-PCS; principal; 2022-03-18 14:45)
PROC: 0DBH8ZZ Excision of Cecum, Via Natural or Artificial Opening Endoscopic (ICD-10-PCS; 2022-03-18 14:45)
DX: L03.115 Cellulitis of right lower limb (principal); K21.01 Gastro-esophageal reflux disease with esophagitis, with bleeding; E87.20 Acidosis, unspecified; J90 Pleural effusion, not elsewhere classified; J96.11 Chronic respiratory failure with hypoxia; N17.9 Acute kidney failure, unspecified; I12.9 Hypertensive chronic kidney disease with stage 1 through stage 4 chronic kidney disease, or unspecified chronic kidney disease; J44.9 Chronic obstructive pulmonary disease, unspecified; D50.9 Iron deficiency anemia, unspecified; N18.30 Chronic kidney disease, stage 3 unspecified; M19.90 Unspecified osteoarthritis, unspecified site; K63.5 Polyp of colon; E11.22 Type 2 diabetes mellitus with diabetic chronic kidney disease; E11.51 Type 2 diabetes mellitus with diabetic peripheral angiopathy without gangrene; K57.30 Diverticulosis of large intestine without perforation or abscess without bleeding; G40.909 Epilepsy, unspecified, not intractable, without status epilepticus; R07.81 Pleurodynia; K21.9 Gastro-esophageal reflux disease without esophagitis; K64.1 Second degree hemorrhoids; F32.A Depression, unspecified; D72.829 Elevated white blood cell count, unspecified; H91.90 Unspecified hearing loss, unspecified ear; E78.5 Hyperlipidemia, unspecified; R53.81 Other malaise; Z95.818 Presence of other cardiac implants and grafts; Z95.820 Peripheral vascular angioplasty status with implants and grafts; Z96.652 Presence of left artificial knee joint; Z87.891 Personal history of nicotine dependence
CPT/HCPCS: OP; G0378; J0696; J1644; J1940; J2704; J3370; J7050; P9047